=== PATIENT | male | born 1960 | race Caucasian/White ===

== ENCOUNTER 2017-11-02 13:22 | Inpatient (IN) | payer MEDICARE, MEDICAID ==
[~2017-11-02 13:22] MED LIST: Lidocaine 2% Gel 5 mL TP ONE; Propofol 10 mg/mL 20mL Vial **SURGERY USE ONLY IV ONE
[2017-11-02] MEDS ORDERED: Codeine /Guaifenesin 200mg-20mg/10 mL UDC PO STA (13:58)
[2017-11-02] MEDS ORDERED: Acetaminophen 500 MG TAB PO ONE (13:59)
[2017-11-02] MEDS ORDERED: Sodium Chloride 0.9% 1,000 ML IV ONE (14:11)
[2017-11-02] MEDS ORDERED: Codeine /Guaifenesin 200mg-20mg/10 mL UDC ONE (14:29)
[2017-11-02] MEDS ORDERED: Acetaminophen 500 MG TAB ONE (14:30)
[2017-11-02 14:38] LABS: % BASOPHILS 0.3 % (0.0-2.0); % EOSINOPHILS 0.1 % (0.0-5.0); % LYMPHOCYTES 9.2 % (20.0-50.0); % MONOCYTES 3.6 % (2.0-10.0); % NEUTROPHILS 86.8 % (40.0-80.0); LYMPHOCYTE ABSOLUTE 0.8 Th/cmm (1.5-3.0); MEAN CELL VOLUME 77.5 fl (80-99); MEAN CORPUSCULAR HEMOGLOBIN 24.8 pg (26.0-30.0); MEAN CORPUSCULAR HGB CONC 31.9 pg (28.0-36.0); MONOCYTE ABSOLUTE 0.3 Th/cmm (0.3-1.0); NEUTROPHILE ABSOLUTE 7.9 Th/cmm (1.8-8.0); PLATELET COUNT 534 Th/cmm (150-400); RED BLOOD COUNT 2.17 Mil/cmm (4.30-5.70); RED CELL DISTRIBUTION WIDTH 18.5 % (11.5-20.0)
[2017-11-02 14:44] LABS: ALBUMIN 2.9 gm/dL (4.2-5.5); ALKALINE PHOSPHATASE 46 U/L (34-104); BILIRUBIN,TOTAL 0.1 mg/dL (0.3-1.0); BUN - UREA NITROGEN 36 mg/dL (7-25); CALCIUM SERUM 8.3 mg/dL (8.6-10.3); CARBON DIOXIDE 26.7 mEq/L (21.0-31.0); CHLORIDE 103 mEq/L (98-107); CREATININE - SERUM 0.6 mg/dL (0.7-1.3); GFR AFRICAN-AMERICAN > 60.0 ml/min (>90); GFR NON AFRICAN-AMERICAN > 60.0 ml/min; GLUCOSE 170 mg/dL (70-105); POTASSIUM SERUM 3.7 mEq/L (3.5-5.1); SGOT 9 U/L (13-39); SGPT/ALT 10 U/L (7-52); SODIUM SERUM 136 mEq/L (136-145); TOTAL PROTEIN,SERUM 5.8 gm/dL (6.0-8.3)
[2017-11-02 14:45] LABS: HEMATOCRIT 16.8 % (41.0-60); HEMOGLOBIN 5.4 gm/dL (12-16)
--- NOTE | 2017-11-02 14:55 | Diagnostic Imaging Report ---
CHEST X-RAY: AP view INDICATION: Pneumonia COMPARISON: None FINDINGS: Left basal subsegmental atelectasis versus scarring is noted. There is no focal consolidation or pleural effusions The heart is normal in size. The osseous structures demonstrate no acute abnormalities. IMPRESSION: Left basal subsegmental atelectasis versus scarring. No focal consolidation identified.
[2017-11-02] MEDS ORDERED: Piperacillin Sodium/Tazobact 3.375 gm Vial IV ONE (15:09)
[2017-11-02 15:12] LABS: INF A SCREEN NEG FOR INF A; INF B SCREEN NEG FOR INF B
--- NOTE | 2017-11-02 15:22 | ER Physician Documentation ---
DATE OF SERVICE: 11/02/2017 CHIEF COMPLAINT: The patient has some vomiting, nausea sensation, and not feeling good and looks pale and feeling body ache and not feeling well. HISTORY OF PRESENT ILLNESS: The patient is not a very good historian. He lives in a long term and he is a patient of Dr. Preston, [facility]. The patient's temperature is 98.9, pulse is 101, respirations 19, blood pressure 128/65, saturation 93%. The patient's dentist is Dr. Matthews, patient's executive admin is Nick Snow and pharmacy is [facility]. ALLERGIES: No known allergies. The patient is not a very good historian. He has a G-tube in place. So history of present illness could not be obtained. Most of the history of present illness, etc., would be given from the available records that are there. PHYSICAL EXAMINATION: GENERAL: The patient appears to be of stated age, maybe 5 years older than the stated age. Conjunctivae appear to be showing pallor. Pupils are equal, reacting to light. No meningeal signs are noted. No edema over the legs. The patient has a G-tube. He appears to be 5-7 years at least more than the stated age, not in any acute distress at the present moment. The patient is in sinus rhythm. Blood pressure 130/65. Saturation is not connected. We will ask them to connect it. The patient, on physical examination shows that he is awake. He is somewhat confused. He said he fell down. He does not know where fell down. He says he is not feeling good. HEENT: His conjunctivae are pink, sclerae are white. As I mentioned, sclerae shows evidence of anemia. No evidence of any meningeal signs. Reflexes are normal. Plantars are downgoing. HEENT normal. NECK: Carotids are normal. Normal uplift. No cyanosis or petechia. No ecchymosis. No evidence of any gross congestive heart failure. CHEST: Reveals trachea is central. Few occasional crackles and rales audible in both lung davidson. ABDOMEN: Soft. Liver, spleen not enlarged. No free fluid in his abdominal cavity. No ascites is present. The patient's final diagnosis is patient is feeling sick. It looks like the patient's past history showed malignant neoplasm of the esophagus, unspecified gastrostomy status with G-tube in place. Muscle wasting and atrophy. NEUROLOGIC: Other abnormalities of gait and mobility is noted. The patient has ___ ascites of the esophagus is noted. Rehabilitation potential is poor in this patient. According to the notes of Dr. Preston and from what my examination also shows that he is weak. Some other notes of the patient were also reviewed that came with the patient. The patient has a power of insurance attorney. He has indicated power of insurance attorney to the patient is Sravani Lee on 11/05/2016. MEDICATIONS: The patient's medications that he takes include Tylenol and Ventolin inhaler, Zofran, artificial tears, Dulcolax, Ativan and the patient takes isosorbide dinitrate, Pepcid, atorvastatin, doxazosin, aspirin, Norvasc, and Lotensin 20 mg p.o. b.i.d. These are the medications he is taking. We will give those medications to start with. CLINICAL IMPRESSION: The patient probably has some sepsis going on. He is having cough. He is having shortness of breath, perhaps he has GERD. He has aspirated. He has cancer of the esophagus with surgery done. He has mental disorder. He has schizophrenia. He has depression. He has anxiety and he has a G-tube in place. The patient had been seen by psychiatrist, Dr. Wright. LABORATORY DATA: The patient's lab workup was done on 09/17, at another institution showing white count to be 8.56, hemoglobin 9.1, hematocrit 29.6, platelet count was 421, neutrophils is 87.1 showing shift to the left. Absolute neutrophil is high, 7.56. Glucose is 112, BUN is 7, creatinine 0.53. Sodium 142, potassium 4.3, chloride 106, CO2 is 26, calcium is 8.2, albumin is 3, SGOT 17, SGPT is 19, bilirubin is 0.4, alkaline phosphatase 59, protein is 5.8, BUN and creatinine is ___ and 0.3, albumin level is 14, cholesterol level is 85. TSH is 2.5. Cholesterol total is 150, triglyceride is 114, HDL is 42. Free T4 is 1.1. Hemoglobin A1c is 4.9. PLAN: To get all the lab workup done. EKG done. Chest x-ray done. Blood gas done on the patient and give all the blood pressure medications, coronary artery disease medications, etc. that the patient is needing. This is the preliminary report. Addendum report once we get all the labs, etc. will be dictated. JOB# [id number]
--- NOTE | 2017-11-02 21:17 | History and Physical ---
History of Present Illness - HPI Chief Complaint: coffee ground emesis HPI: This is a 57 year old male who has a 1 day history of coffee ground emesis. Patient is a resident of [facility]. Vital Signs: Last Vital Signs Temp 97.8 F 11/02/17 19:59 Pulse 88 11/02/17 19:59 Resp 18 11/02/17 19:59 BP 115/51 11/02/17 19:59 Pulse Ox 100 11/02/17 19:59 Past Medical History Other History: schizophrenia gerd depression esophageal ca htn hypercholesterolemia Family Medical History - Family Member Mother History Unknown: Yes Social History Smoke: No Alcohol: None Drugs: None Lives: [facility] - Medications Home Medications: Home Medication Medication Instructions Recorded Type Acetaminophen [Tylenol] 650 mg PO Q4HR PRN 11/02/17 History Albuterol Sulfate [Ventolin Hfa] 2 puff IH Q4H PRN 11/02/17 History Amino Acids/Protein Hydrolys 30 ml GT DAILY 11/02/17 History [Pro-Stat Sugar Free 887 ml] Aspirin [Aspirin Chewable] 81 mg GT DAILY 11/02/17 History Atorvastatin Calcium [Lipitor] 20 mg GT HS 11/02/17 History Benazepril [Lotensin] 20 mg GT BID 11/02/17 History Bisacodyl [Dulcolax 10 Mg Supp] 10 mg RC DAILY PRN 11/02/17 History Dextran 70/Hypromellose 1 each OP BID PRN 11/02/17 History [Artificial Tears] Docusate Sodium [Colace] 100 mg GT BID 11/02/17 History Doxazosin Mesylate 1 mg GT HS 11/02/17 History Dutasteride [Avodart] 0.5 mg GT DAILY 11/02/17 History Famotidine [Pepcid] 20 mg GT DAILY 11/02/17 History Isosorbide Dinitrate 30 mg GT DAILY 11/02/17 History Lorazepam [Ativan] 1 mg GT Q6H PRN 11/02/17 History Magnesium Hydroxide [Milk of 30 ml GT DAILY PRN 11/02/17 History Magnesia] Ondansetron HCl [Zofran*] 4 mg GT Q8H PRN 11/02/17 History amLODIPine Besylate [Norvasc*] 10 mg GT DAILY 11/02/17 History metFORMIN [Glucophage] 500 mg GT BID 11/02/17 History - Allergies Allergies/Adverse Reactions: Allergies Allergy/AdvReac Type Severity Reaction Status Date / Time No Known Allergies Allergy Verified 11/02/17 13:41 Review of Systems - Review of Systems Constitutional: Report: Weakness Eyes: Report: No Significant ENT: Report: No Significant Respiratory: Report: No Significant Cardiovascular: Report: No Significant Gastrointestinal: Report: Nausea Genitourinary: Report: No Significant Musculoskeletal: Report: No Significant Skin: Report: No Significant Neurological: Report: Weakness Physical Exam - Physical Exam HEENT: Report: Ears Nose Throat within normal limits Neck: Report: Within normal limits Cardiovascular Systems: Report: +s1/s2 noted Respiratory: Report: Breath Sounds are within normal limits Abdomen: Report: Non-tender to palpation Extremities: Report: Non-tender to palpation. Skin: Report: Warm, Dry - Assessment Assessment: Current Active Problems Problem Status Onset COFFEE GROUND EMESIS Acute severe anemia schizophrenia gerd htn hypercholesteremia - Plan Plan: gi consult iv for hydration transfuse prbc continue current orders
[2017-11-02] MEDS: Atorvastatin Calcium 10 MG TAB GT SCH (23:25)
[2017-11-03] MEDS: Morphine Sulfate 2 mg/mL 1mL Syr IV PRN (03:37)
[2017-11-03] MEDS: Sodium Chloride 0.9% 1,000 ML IV SCH (03:44)
[2017-11-03] MEDS ORDERED: Polyvinyl Alcohol Ophth Soln 15 mL Bottle EACH EYE PRN (07:39)
[2017-11-03 08:13] LABS: IRON LC 16 ug/dL (38-169); TIBC (LC) 176 ug/dL (250-450); UIBC 160 ug/dL (111-343)
[2017-11-03] MEDS ORDERED: Non-Formulary Item 1 EA (Amino Acids/Protein Hydrolys [Pro-Stat Sugar Free Liquid] 30 ML) GT SCH (09:00)
[2017-11-03] MEDS ORDERED: Aspirin 81mg Chewable Tab GT SCH (09:00)
[2017-11-03] MEDS ORDERED: Pantoprazole 80 MG in Sodium Chloride 0.9% 100 ML IV ONE (11:00)
--- NOTE | 2017-11-03 12:32 | Internal Medicine Prog Note ---
Internal Medicine Subjective - Subjective Service Date: 11/03/17 Patient seen and examined:: with staff Patient is:: awake Per staff patient has:: tolerating meds Internal Medicine Objective - Results Result Diagrams: 11/02/17 14:15 11/02/17 14:15 Recent Labs: Laboratory Last Values WBC 9.0 Th/cmm (4.8-10.8) 11/02/17 14:15 RBC 2.17 Mil/cmm (4.30-5.70) L 11/02/17 14:15 Hgb 5.4 gm/dL (12-16) L* 11/02/17 14:15 Hct 16.8 % (41.0-60) L* 11/02/17 14:15 MCV 77.5 fl (80-99) L 11/02/17 14:15 MCH 24.8 pg (26.0-30.0) L 11/02/17 14:15 MCHC Differential 31.9 pg (28.0-36.0) 11/02/17 14:15 RDW 18.5 % (11.5-20.0) 11/02/17 14:15 Plt Count 534 Th/cmm (150-400) H 11/02/17 14:15 MPV 7.0 fl 11/02/17 14:15 Neutrophils % 86.8 % (40.0-80.0) H 11/02/17 14:15 Lymphocytes % 9.2 % (20.0-50.0) L 11/02/17 14:15 Monocytes % 3.6 % (2.0-10.0) 11/02/17 14:15 Eosinophils % 0.1 % (0.0-5.0) 11/02/17 14:15 Basophils % 0.3 % (0.0-2.0) 11/02/17 14:15 Sodium 136 mEq/L (136-145) 11/02/17 14:15 Potassium 3.7 mEq/L (3.5-5.1) 11/02/17 14:15 Chloride 103 mEq/L (98-107) 11/02/17 14:15 Carbon Dioxide 26.7 mEq/L (21.0-31.0) 11/02/17 14:15 Anion Gap 10.0 (7.0-16.0) 11/02/17 14:15 BUN 36 mg/dL (7-25) H 11/02/17 14:15 Creatinine 0.6 mg/dL (0.7-1.3) L 11/02/17 14:15 Est GFR ( Amer) > 60.0 ml/min (>90) 11/02/17 14:15 Est GFR (Non-Af Amer) > 60.0 ml/min 11/02/17 14:15 BUN/Creatinine Ratio 60.0 11/02/17 14:15 Glucose 170 mg/dL (70-105) H 11/02/17 14:15 Whole Bld Lactic Acid 1.93 mmol/L (0.60-1.99) 11/02/17 14:15 Calcium 8.3 mg/dL (8.6-10.3) L 11/02/17 14:15 Magnesium 2.0 mg/dL (1.9-2.7) 11/02/17 14:15 Iron 16 ug/dL (38-169) L 11/02/17 16:30 TIBC 176 ug/dL (250-450) L 11/02/17 16:30 Iron Saturation 9 % (15-55) L 11/02/17 16:30 Unsaturated IBC 160 ug/dL (111-343) 11/02/17 16:30 Total Bilirubin 0.1 mg/dL (0.3-1.0) L 11/02/17 14:15 AST 9 U/L (13-39) L 11/02/17 14:15 ALT 10 U/L (7-52) 11/02/17 14:15 Alkaline Phosphatase 46 U/L (34-104) 11/02/17 14:15 B-Natriuretic Peptide 23.9 pg/mL (5.0-100.0) 11/02/17 14:15 Total Protein 5.8 gm/dL (6.0-8.3) L 11/02/17 14:15 Albumin 2.9 gm/dL (4.2-5.5) L 11/02/17 14:15 Globulin 2.9 gm/dL 11/02/17 14:15 Albumin/Globulin Ratio 1.0 (1.0-1.8) 11/02/17 14:15 TSH 1.36 uIU/ml (0.34-5.60) 11/02/17 14:15 Influenza A (Rapid) NEG FOR INF A 11/02/17 14:15 Influenza B (Rapid) NEG FOR INF B 11/02/17 14:15 Blood Type B POSITIVE 11/02/17 14:15 Antibody Screen NEGATIVE 11/02/17 14:15 Crossmatch See Detail 11/02/17 14:15 - Physical Exam Vitals and I&O: Vital Signs Temp 97.7 F 11/03/17 12:00 Pulse 65 11/03/17 12:00 Resp 17 11/03/17 12:00 BP 120/71 11/03/17 12:00 Pulse Ox 97 11/03/17 12:00 Intake & Output 11/02/17 11/03/17 11/03/17 18:59 06:59 18:59 Intake Total 500 Output Total 600 Balance -100 Weight (lbs) 160 lb Intake: Blood Product 500 Output: Urine 600 Other: # Voids 1 # Bowel Movements 1 Active Medications: Current Medications Acetaminophen (Tylenol) 650 mg PO Q4HR PRN PRN Reason: MILD PAIN Stop: 01/01/18 20:56 Amlodipine Besylate (Norvasc) 10 mg GT DAILY [facility] Stop: 01/02/18 08:59 Last Admin: 11/03/17 09:00 Dose: Not Given Artificial Tears (Artificial Tears Oph Soln) 1 drop EACH EYE BID PRN PRN Reason: DRY EYES Stop: 01/02/18 07:38 Atorvastatin Calcium (Lipitor) 20 mg GT HS [facility] Stop: 01/01/18 20:59 Last Admin: 11/02/17 23:25 Dose: Not Given Benazepril HCl (Lotensin) 20 mg GT BID [facility] Stop: 01/02/18 08:59 Last Admin: 11/03/17 10:31 Dose: Not Given Bisacodyl (Dulcolax 10 Mg Supp) 10 mg RC DAILY PRN PRN Reason: Constipation Stop: 01/01/18 20:56 Docusate Sodium (Colace) 100 mg PO BID [facility] Stop: 01/02/18 08:59 Last Admin: 11/03/17 09:00 Dose: Not Given Sodium Chloride (Nacl 0.9%) 1,000 mls @ 100 mls/hr IV .Q10H [facility] Stop: 01/01/18 22:09 Last Admin: 11/03/17 03:44 Dose: 100 mls/hr Pantoprazole Sodium 80 mg/ (Sodium Chloride) 100 mls @ 10 mls/hr IV X1 ONE Stop: 11/03/17 20:59 Miscellaneous (Albuterol Sulfate [Ventolin Hfa]) 2 puff IH Q4H PRN PRN Reason: SOB/WHEEZING Morphine Sulfate (Morphine) 1 mg IV Q3HR PRN PRN Reason: moderate pain Stop: 01/01/18 23:37 Last Admin: 11/03/17 03:37 Dose: 1 mg Ondansetron HCl (Zofran) 4 mg IV Q6H PRN PRN Reason: Nausea / Vomiting Stop: 01/01/18 23:37 Last Admin: 11/03/17 03:37 Dose: 4 mg General: weak, alert HEENT: NC/AT, PERRLA Neck: Supple Lungs: CTAB Cardiovascular: RRR, Normal S1, Normal S2, without murmur Abdomen: soft, non-tender, non-distended, positive bowel sound Neurological: alert Internal Medicine Assmt/Plan - Assessment Assessment: severe anemia schizophrenia gerd htn hypercholesteremia - Plan Plan: monitor h/h ivf for hydration follow up labs in am continue current orders
[2017-11-03 12:53] VITALS: BP 115/59
[2017-11-03] MEDS ORDERED: Non-Formulary Item 1 EA (Ondansetron Hcl [Zofran*] 4 MG) GT PRN (12:57)
[2017-11-03] MEDS ORDERED: Magnesium Hydroxide (MOM) 30 mL UDC GT PRN (12:57)
[2017-11-03 13:03] LABS: LYMPHOCYTE ABSOLUTE 0.5 Th/cmm (1.5-3.0); MEAN CELL VOLUME 83.2 fl (80-99); MONOCYTE ABSOLUTE 0.3 Th/cmm (0.3-1.0); RED CELL DISTRIBUTION WIDTH 16.2 % (11.5-20.0)
[2017-11-03 13:09] LABS: HEMOGLOBIN 8.3 gm/dL (12-16); MEAN CORPUSCULAR HEMOGLOBIN 26.9 pg (26.0-30.0); MEAN CORPUSCULAR HGB CONC 32.3 pg (28.0-36.0); RED BLOOD COUNT 3.07 Mil/cmm (4.30-5.70); WHITE BLOOD COUNT 8.6 Th/cmm (4.8-10.8)
[2017-11-03 13:10] LABS: % BASOPHILS 0.6 % (0.0-2.0); % EOSINOPHILS 0.4 % (0.0-5.0); % LYMPHOCYTES 6.3 % (20.0-50.0); % NEUTROPHILS 88.7 % (40.0-80.0); BASOPHILE ABSOLUTE 0.1 Th/cumm (0-0.2); MEAN PLATELET VOLUME 6.5 fl; NEUTROPHILE ABSOLUTE 7.7 Th/cmm (1.8-8.0)
[2017-11-03 13:11] LABS: HEMATOCRIT 25.5 % (41.0-60); PLATELET COUNT 381 Th/cmm (150-400)
[2017-11-03 13:50] LABS: ABSOLUTE RETICULOCYTE 39.9 Th/cmm; CORRECTED RETICULOCYTE COUNT 0.7 % (0.5-1.5); HEMATOCRIT 25.5 % (33.0-45.0); RBC RETICULOCYTE COUNT 3.07 Mil/cmm; RETICULOCYTES % COUNTED 1.3 % (0.5-1.5)
--- NOTE | 2017-11-03 17:15 | Consultation ---
DATE OF CONSULTATION: 11/03/2017 REASON FOR CONSULTATION: GI bleed. HISTORY OF PRESENT ILLNESS: This consult was obtained through the courtesy of Dr. Preston for this 57-year-old with diabetes, hypertension, and hyperlipidemia; admitted to the hospital for hematemesis. Apparently, the patient has been vomiting blood for a couple of days. He came to the hospital, hemoglobin was 5.6. The patient is very slow to answer questions, but he is fully oriented. He denies any abdominal pain. He has lost 3 pounds over the last few days. There is no diarrhea, constipation, or black stools. PAST MEDICAL HISTORY: Diabetes, hypertension, hyperlipidemia, depression, schizophrenia, and the record has said esophageal C, but he did not mention it. PAST SURGICAL HISTORY: Negative. SOCIAL HISTORY: Smokes 2 packs a day. Denies alcohol or drugs. FAMILY HISTORY: Noncontributory. ALLERGIES: No known drug allergies. MEDICATIONS: The patient is started on Tylenol, amlodipine, aspirin, atorvastatin, Lotensin, Dulcolax, Colace, morphine, Zofran, and Protonix. REVIEW OF SYSTEMS: As stated above, 3 pounds weight loss. No nausea, vomiting, diarrhea, or constipation. No melena. PHYSICAL EXAMINATION: GENERAL: The patient is awake, oriented to self, place, in mild distress. VITAL SIGNS: Blood pressure is 107/61, heart rate 77, respiratory rate 18, and temperature is 97.2. HEAD AND NECK: Pupils reactive to light and accommodation. Extraocular muscles could not be tested. Sclerae are anicteric, conjunctivae pale. Oral cavity, no lesion. NECK: Supple. No jugular venous distention. No carotid bruits or lymph node. CHEST: Good respiratory movements. LUNGS: Clear to auscultation. CARDIOVASCULAR: Regular rate and rhythm. No murmur or gallop. ABDOMEN: Soft, positive bowel sounds. Abdomen was not tender. EXTREMITIES: Lower extremities, no edema. CENTRAL NERVOUS SYSTEM: Grossly nonfocal. LABORATORY DATA: Hemoglobin 5.4, MCV low at 77.5, RDW elevated at 18.5. Iron was 16, TIBC was 176, and saturation was 9. IMPRESSION: A 57-year-old with gastrointestinal bleed. ASSESSMENT AND PLAN: Gastrointestinal bleed, rule out peptic ulcer disease versus upper gastrointestinal malignancy versus erosive esophagitis, especially with a possible history of esophageal cancer. RECOMMENDATIONS: PPI, but we will use a drip instead of once a day. We will hold also aspirin. We will allow clear liquid diet today then EGD after transfusion, most probably in the morning, although there is active bleeding, then sooner, and then further recommendations to follow. Other medical problems such as diabetes, hypertension, hyperlipidemia, etc., as per Dr. Preston. Thank you Dr. Preston for allowing me to participate in the care of the patient. If you have any further questions, please let me know. JOB# [id number]
[2017-11-03] MEDS: Atorvastatin Calcium 10 MG TAB GT SCH (20:26)
[2017-11-03] MEDS ORDERED: Pantoprazole 80 MG in Sodium Chloride 0.9% 100 ML IV SCH (22:30)
[2017-11-04] MEDS: Morphine Sulfate 2 mg/mL 1mL Syr IV PRN (02:52)
[2017-11-04 06:20] LABS: % EOSINOPHILS 1.2 % (0.0-5.0); % LYMPHOCYTES 10.6 % (20.0-50.0); % MONOCYTES 5.3 % (2.0-10.0); % NEUTROPHILS 82.9 % (40.0-80.0); EOSINOPHILE ABSOLUTE 0.1 Th/cmm (0.1-0.4); LYMPHOCYTE ABSOLUTE 0.6 Th/cmm (1.5-3.0); MEAN CELL VOLUME 83.3 fl (80-99); MEAN CORPUSCULAR HEMOGLOBIN 26.8 pg (26.0-30.0); MEAN CORPUSCULAR HGB CONC 32.2 pg (28.0-36.0); MEAN PLATELET VOLUME 6.7 fl; MONOCYTE ABSOLUTE 0.3 Th/cmm (0.3-1.0); NEUTROPHILE ABSOLUTE 4.8 Th/cmm (1.8-8.0); RED BLOOD COUNT 2.86 Mil/cmm (4.30-5.70); RED CELL DISTRIBUTION WIDTH 16.6 % (11.5-20.0)
[2017-11-04 06:22] LABS: HEMOGLOBIN 7.7 gm/dL (12-16)
[2017-11-04 06:23] LABS: HEMATOCRIT 23.8 % (41.0-60); PLATELET COUNT 295 Th/cmm (150-400); WHITE BLOOD COUNT 5.8 Th/cmm (4.8-10.8)
[2017-11-04 06:33] LABS: INR 1.03 (0.5-1.4); PROTHROMBIN TIME (TEST) 10.7 SECONDS (9.5-11.5)
[2017-11-04 06:34] LABS: ANION GAP 8.9 (7.0-16.0); BUN - UREA NITROGEN 10 mg/dL (7-25); CALCIUM SERUM 7.5 mg/dL (8.6-10.3); CARBON DIOXIDE 21.9 mEq/L (21.0-31.0); CHLORIDE 109 mEq/L (98-107); CREATININE - SERUM 0.4 mg/dL (0.7-1.3); GFR AFRICAN-AMERICAN > 60.0 ml/min (>90); GFR NON AFRICAN-AMERICAN > 60.0 ml/min; GLUCOSE 135 mg/dL (70-105); POTASSIUM SERUM 3.8 mEq/L (3.5-5.1); SODIUM SERUM 136 mEq/L (136-145)
[2017-11-04] MEDS: Sodium Chloride 0.9% 1,000 ML IV SCH (06:51)
--- NOTE | 2017-11-04 09:45 | General Progress Note ---
Subjective - Review of Systems Service Date: 11/04/17 Events since last encounter: awake alert, still vomiting Objective - Results Result Diagrams: 11/04/17 05:54 11/04/17 05:54 Recent Labs: Laboratory Last Values WBC 5.8 Th/cmm (4.8-10.8) D 11/04/17 05:54 RBC 2.86 Mil/cmm (4.30-5.70) L 11/04/17 05:54 Hgb 7.7 gm/dL (12-16) L* 11/04/17 05:54 Hct 23.8 % (41.0-60) L 11/04/17 05:54 MCV 83.3 fl (80-99) 11/04/17 05:54 MCH 26.8 pg (26.0-30.0) 11/04/17 05:54 MCHC Differential 32.2 pg (28.0-36.0) 11/04/17 05:54 RDW 16.6 % (11.5-20.0) 11/04/17 05:54 Plt Count 295 Th/cmm (150-400) D 11/04/17 05:54 MPV 6.7 fl 11/04/17 05:54 Neutrophils % 82.9 % (40.0-80.0) H 11/04/17 05:54 Lymphocytes % 10.6 % (20.0-50.0) L 11/04/17 05:54 Monocytes % 5.3 % (2.0-10.0) 11/04/17 05:54 Eosinophils % 1.2 % (0.0-5.0) 11/04/17 05:54 Basophils % 0.0 % (0.0-2.0) 11/04/17 05:54 Total Retics Counted 1.3 % (0.5-1.5) 11/03/17 12:55 Absolute Retic 39.9 Th/cmm 11/03/17 12:55 Corrected Retic Count 0.7 % (0.5-1.5) 11/03/17 12:55 PT 10.7 SECONDS (9.5-11.5) 11/04/17 05:54 INR 1.03 (0.5-1.4) 11/04/17 05:54 Sodium 136 mEq/L (136-145) 11/04/17 05:54 Potassium 3.8 mEq/L (3.5-5.1) 11/04/17 05:54 Chloride 109 mEq/L (98-107) H 11/04/17 05:54 Carbon Dioxide 21.9 mEq/L (21.0-31.0) 11/04/17 05:54 Anion Gap 8.9 (7.0-16.0) 11/04/17 05:54 BUN 10 mg/dL (7-25) 11/04/17 05:54 Creatinine 0.4 mg/dL (0.7-1.3) L 11/04/17 05:54 Est GFR ( Amer) > 60.0 ml/min (>90) 11/04/17 05:54 Est GFR (Non-Af Amer) > 60.0 ml/min 11/04/17 05:54 BUN/Creatinine Ratio 25.0 11/04/17 05:54 Glucose 135 mg/dL (70-105) H 11/04/17 05:54 Whole Bld Lactic Acid 1.93 mmol/L (0.60-1.99) 11/02/17 14:15 Calcium 7.5 mg/dL (8.6-10.3) L 11/04/17 05:54 Magnesium 2.0 mg/dL (1.9-2.7) 11/02/17 14:15 Iron 16 ug/dL (38-169) L 11/02/17 16:30 TIBC 176 ug/dL (250-450) L 11/02/17 16:30 Iron Saturation 9 % (15-55) L 11/02/17 16:30 Unsaturated IBC 160 ug/dL (111-343) 11/02/17 16:30 Ferritin 12 ng/mL (30-400) L 11/02/17 16:30 Total Bilirubin 0.1 mg/dL (0.3-1.0) L 11/02/17 14:15 AST 9 U/L (13-39) L 11/02/17 14:15 ALT 10 U/L (7-52) 11/02/17 14:15 Alkaline Phosphatase 46 U/L (34-104) 11/02/17 14:15 B-Natriuretic Peptide 23.9 pg/mL (5.0-100.0) 11/02/17 14:15 Total Protein 5.8 gm/dL (6.0-8.3) L 11/02/17 14:15 Albumin 2.9 gm/dL (4.2-5.5) L 11/02/17 14:15 Globulin 2.9 gm/dL 11/02/17 14:15 Albumin/Globulin Ratio 1.0 (1.0-1.8) 11/02/17 14:15 TSH 1.36 uIU/ml (0.34-5.60) 11/02/17 14:15 Influenza A (Rapid) NEG FOR INF A 11/02/17 14:15 Influenza B (Rapid) NEG FOR INF B 11/02/17 14:15 Blood Type B POSITIVE 11/02/17 14:15 Antibody Screen NEGATIVE 11/02/17 14:15 Crossmatch See Detail 11/02/17 14:15 - Physical Exam Vitals and I&O: Vital Signs Temp 97.4 F 11/04/17 08:06 Pulse 91 11/04/17 08:06 Resp 20 11/04/17 08:06 BP 114/61 11/04/17 08:06 Pulse Ox 100 11/04/17 08:06 Intake & Output 11/03/17 11/04/17 11/04/17 18:59 06:59 18:59 Intake Total 1650 Output Total 700 Balance 950 Weight (lbs) 72.575 kg 72.575 kg Intake: Intake, IV Amount 1000 Sodium Chloride 0.9% 1, 1000 000 ml @ 100 mls/hr IV . Q10H [facility] Rx#:[id number] Oral 400 Blood Product 250 Output: Urine 700 Other: # Voids 2 # Bowel Movements 0 Active Medications: Current Medications Acetaminophen (Tylenol) 650 mg PO Q4HR PRN PRN Reason: MILD PAIN Stop: 01/01/18 20:56 Albuterol Sulfate (Albuterol 2.5mg/3ml Neb Ud) 2.5 mg HHN Q4H PRN PRN Reason: SOB/WHEEZING Amlodipine Besylate (Norvasc) 10 mg GT DAILY [facility] Stop: 01/02/18 08:59 Last Admin: 11/03/17 09:00 Dose: Not Given Artificial Tears (Artificial Tears Ophth Soln) 1 drop EACH EYE BID PRN PRN Reason: DRY EYES Stop: 01/02/18 07:38 Atorvastatin Calcium (Lipitor) 20 mg GT HS [facility] Stop: 01/01/18 20:59 Last Admin: 11/03/17 20:26 Dose: 20 mg Benazepril HCl (Lotensin) 20 mg GT BID [facility] Stop: 01/02/18 08:59 Last Admin: 11/03/17 16:16 Dose: 20 mg Bisacodyl (Dulcolax 10 Mg Supp) 10 mg RC DAILY PRN PRN Reason: Constipation Stop: 01/01/18 20:56 Docusate Sodium (Colace) 100 mg PO BID [facility] Stop: 01/02/18 08:59 Last Admin: 11/03/17 16:16 Dose: 100 mg Doxazosin Mesylate (Cardura) 1 mg GT HS [facility] Stop: 01/02/18 20:59 Last Admin: 11/03/17 20:26 Dose: 1 mg Dutasteride (Avodart) 0.5 mg PO DAILY [facility] PRN Reason: Protocol Stop: 01/03/18 08:59 Famotidine (Pepcid) 20 mg GT DAILY [facility] Stop: 01/03/18 08:59 Sodium Chloride (Nacl 0.9%) 1,000 mls @ 100 mls/hr IV .Q10H [facility] Stop: 01/01/18 22:09 Last Admin: 11/04/17 06:51 Dose: 100 mls/hr Pantoprazole Sodium 80 mg/ (Sodium Chloride) 100 mls @ 10 mls/hr IV Q24HR [facility] Stop: 01/03/18 22:29 Isosorbide Dinitrate (Isordil) 30 mg GT DAILY [facility] Stop: 01/03/18 08:59 Lorazepam (Ativan) 1 mg GT Q6H PRN; Protocol PRN Reason: Agitation Stop: 01/02/18 12:56 Magnesium Hydroxide (Milk Of Magnesia) 30 ml GT DAILY PRN PRN Reason: Constipation Stop: 01/02/18 12:56 Metformin HCl (Glucophage) 500 mg GT BID [facility] Stop: 01/02/18 16:59 Last Admin: 11/03/17 16:15 Dose: 500 mg Morphine Sulfate (Morphine) 1 mg IV Q3HR PRN PRN Reason: moderate pain Stop: 01/01/18 23:37 Last Admin: 11/04/17 02:52 Dose: 1 mg Ondansetron HCl (Zofran) 4 mg IV Q6H PRN PRN Reason: Nausea / Vomiting Stop: 01/01/18 23:37 Last Admin: 11/03/17 03:37 Dose: 4 mg Ondansetron HCl (Zofran Odt) 4 mg SL Q8H PRN PRN Reason: Nausea / Vomiting Stop: 01/02/18 13:55 Quetiapine Fumarate (Seroquel) 250 mg PO HS [facility] PRN Reason: Protocol Stop: 01/02/18 20:59 Assessment/Plan - Problem List Patient Problems: All Active Problems COFFEE GROUND EMESIS (Acute) - Assessment Assessment: Current Active Problems Problem Status Onset COFFEE GROUND EMESIS Acute severe anemia schizophrenia gerd htn hypercholesteremia - Plan Plan: gi f/u iv for hydration continue current orders
[2017-11-04] MEDS: Atorvastatin Calcium 10 MG TAB GT SCH (20:25)
[2017-11-04] MEDS: Pantoprazole 80 MG in Sodium Chloride 0.9% 100 ML IV SCH (22:15)
[2017-11-05 06:45] LABS: MEAN CELL VOLUME 83.5 fl (80-99); MEAN CORPUSCULAR HEMOGLOBIN 27.1 pg (26.0-30.0); MEAN CORPUSCULAR HGB CONC 32.5 pg (28.0-36.0); MEAN PLATELET VOLUME 6.9 fl; PLATELET COUNT 284 Th/cmm (150-400); RED BLOOD COUNT 2.76 Mil/cmm (4.30-5.70); RED CELL DISTRIBUTION WIDTH 16.6 % (11.5-20.0); WHITE BLOOD COUNT 5.9 Th/cmm (4.8-10.8)
[2017-11-05 07:10] LABS: HEMOGLOBIN 7.5 gm/dL (12-16); MANUAL DIFF REQUIRED? YES
[2017-11-05 07:33] LABS: ANISOCYTOSIS 1+; BAND NEUTROPHILE 1 % (0-10); HYPOCHROMIA 1+; LYMPHOCYTE 4 % (20-50); MONOCYTE 7 % (2-10); NEUTROPHILS 88 % (40-80); PLATELET ESTIMATE ADEQUATE (NORMAL); TOTAL CELLS COUNTED 100
--- NOTE | 2017-11-05 08:44 | General Progress Note ---
Subjective - Review of Systems Service Date: 11/05/17 Events since last encounter: awake alert, still noted with nausea and vomiting Objective - Results Result Diagrams: 11/05/17 06:10 11/04/17 05:54 Recent Labs: Laboratory Last Values WBC 5.9 Th/cmm (4.8-10.8) 11/05/17 06:10 RBC 2.76 Mil/cmm (4.30-5.70) L 11/05/17 06:10 Hgb 7.5 gm/dL (12-16) L* 11/05/17 06:10 Hct 23.0 % (41.0-60) L 11/05/17 06:10 MCV 83.5 fl (80-99) 11/05/17 06:10 MCH 27.1 pg (26.0-30.0) 11/05/17 06:10 MCHC Differential 32.5 pg (28.0-36.0) 11/05/17 06:10 RDW 16.6 % (11.5-20.0) 11/05/17 06:10 Plt Count 284 Th/cmm (150-400) 11/05/17 06:10 MPV 6.9 fl 11/05/17 06:10 Neutrophils % 82.9 % (40.0-80.0) H 11/04/17 05:54 Band Neutrophils % 1 % (0-10) 11/05/17 06:10 Lymphocytes % 10.6 % (20.0-50.0) L 11/04/17 05:54 Monocytes % 5.3 % (2.0-10.0) 11/04/17 05:54 Eosinophils % 1.2 % (0.0-5.0) 11/04/17 05:54 Basophils % 0.0 % (0.0-2.0) 11/04/17 05:54 Neutrophils (Manual) 88 % (40-80) H 11/05/17 06:10 Lymphocytes 4 % (20-50) L 11/05/17 06:10 Monocytes 7 % (2-10) 11/05/17 06:10 Hypochromia 1+ 11/05/17 06:10 Platelet Estimate ADEQUATE (NORMAL) 11/05/17 06:10 Anisocytosis 1+ 11/05/17 06:10 Total Retics Counted 1.3 % (0.5-1.5) 11/03/17 12:55 Absolute Retic 39.9 Th/cmm 11/03/17 12:55 Corrected Retic Count 0.7 % (0.5-1.5) 11/03/17 12:55 PT 10.7 SECONDS (9.5-11.5) 11/04/17 05:54 INR 1.03 (0.5-1.4) 11/04/17 05:54 Sodium 136 mEq/L (136-145) 11/04/17 05:54 Potassium 3.8 mEq/L (3.5-5.1) 11/04/17 05:54 Chloride 109 mEq/L (98-107) H 11/04/17 05:54 Carbon Dioxide 21.9 mEq/L (21.0-31.0) 11/04/17 05:54 Anion Gap 8.9 (7.0-16.0) 11/04/17 05:54 BUN 10 mg/dL (7-25) 11/04/17 05:54 Creatinine 0.4 mg/dL (0.7-1.3) L 11/04/17 05:54 Est GFR ( Amer) > 60.0 ml/min (>90) 11/04/17 05:54 Est GFR (Non-Af Amer) > 60.0 ml/min 11/04/17 05:54 BUN/Creatinine Ratio 25.0 11/04/17 05:54 Glucose 135 mg/dL (70-105) H 11/04/17 05:54 Whole Bld Lactic Acid 1.93 mmol/L (0.60-1.99) 11/02/17 14:15 Calcium 7.5 mg/dL (8.6-10.3) L 11/04/17 05:54 Magnesium 2.0 mg/dL (1.9-2.7) 11/02/17 14:15 Iron 16 ug/dL (38-169) L 11/02/17 16:30 TIBC 176 ug/dL (250-450) L 11/02/17 16:30 Iron Saturation 9 % (15-55) L 11/02/17 16:30 Unsaturated IBC 160 ug/dL (111-343) 11/02/17 16:30 Ferritin 12 ng/mL (30-400) L 11/02/17 16:30 Total Bilirubin 0.1 mg/dL (0.3-1.0) L 11/02/17 14:15 AST 9 U/L (13-39) L 11/02/17 14:15 ALT 10 U/L (7-52) 11/02/17 14:15 Alkaline Phosphatase 46 U/L (34-104) 11/02/17 14:15 B-Natriuretic Peptide 23.9 pg/mL (5.0-100.0) 11/02/17 14:15 Total Protein 5.8 gm/dL (6.0-8.3) L 11/02/17 14:15 Albumin 2.9 gm/dL (4.2-5.5) L 11/02/17 14:15 Globulin 2.9 gm/dL 11/02/17 14:15 Albumin/Globulin Ratio 1.0 (1.0-1.8) 11/02/17 14:15 Vitamin B12 391 pg/mL (232-1245) 11/03/17 14:15 Folic Acid 11.0 ng/mL (>3.0) 11/03/17 14:15 TSH 1.36 uIU/ml (0.34-5.60) 11/02/17 14:15 Influenza A (Rapid) NEG FOR INF A 11/02/17 14:15 Influenza B (Rapid) NEG FOR INF B 11/02/17 14:15 Blood Type B POSITIVE 11/02/17 14:15 Antibody Screen NEGATIVE 11/02/17 14:15 Crossmatch See Detail 11/02/17 14:15 - Physical Exam Vitals and I&O: Vital Signs Temp 98.2 F 11/05/17 07:48 Pulse 83 11/05/17 07:48 Resp 17 11/05/17 07:48 BP 118/59 11/05/17 07:48 Pulse Ox 98 11/05/17 07:48 Intake & Output 11/04/17 11/05/17 11/05/17 18:59 06:59 18:59 Intake Total 440.041 2542 Balance 196.883 1109 Weight (lbs) 72.575 kg 72.575 kg Intake: Intake, IV Amount 323.333 Sodium Chloride 0.9% 1, 323.333 000 ml @ 100 mls/hr IV . Q10H [facility] Rx#:[id number] Tube Feeding 1340 Other: # Voids 2 2 # Bowel Movements 0 Active Medications: Current Medications Acetaminophen (Tylenol) 650 mg PO Q4HR PRN PRN Reason: MILD PAIN Stop: 01/01/18 20:56 Albuterol Sulfate (Albuterol 2.5mg/3ml Neb Ud) 2.5 mg HHN Q4H PRN PRN Reason: SOB/WHEEZING Amlodipine Besylate (Norvasc) 10 mg GT DAILY [facility] Stop: 01/02/18 08:59 Last Admin: 11/04/17 10:03 Dose: 10 mg Artificial Tears (Artificial Tears Ophth Soln) 1 drop EACH EYE BID PRN PRN Reason: DRY EYES Stop: 01/02/18 07:38 Atorvastatin Calcium (Lipitor) 20 mg GT HS [facility] Stop: 01/01/18 20:59 Last Admin: 11/04/17 20:25 Dose: 20 mg Benazepril HCl (Lotensin) 20 mg GT BID [facility] Stop: 01/02/18 08:59 Last Admin: 11/04/17 17:00 Dose: 20 mg Bisacodyl (Dulcolax 10 Mg Supp) 10 mg RC DAILY PRN PRN Reason: Constipation Stop: 01/01/18 20:56 Docusate Sodium (Colace) 100 mg PO BID [facility] Stop: 01/02/18 08:59 Last Admin: 11/04/17 17:00 Dose: 100 mg Doxazosin Mesylate (Cardura) 1 mg GT HS [facility] Stop: 01/02/18 20:59 Last Admin: 11/04/17 20:25 Dose: 1 mg Dutasteride (Avodart) 0.5 mg PO DAILY [facility] PRN Reason: Protocol Stop: 01/03/18 08:59 Last Admin: 11/04/17 10:02 Dose: 0.5 mg Famotidine (Pepcid) 20 mg GT DAILY [facility] Stop: 01/03/18 08:59 Last Admin: 11/04/17 10:03 Dose: 20 mg Sodium Chloride (Nacl 0.9%) 1,000 mls @ 100 mls/hr IV .Q10H [facility] Stop: 01/01/18 22:09 Last Infusion: 11/04/17 15:00 Dose: 100 mls/hr Pantoprazole Sodium 80 mg/ (Sodium Chloride) 100 mls @ 10 mls/hr IV Q24HR [facility] Stop: 01/03/18 22:29 Last Admin: 11/04/17 22:15 Dose: 10 mls/hr Isosorbide Dinitrate (Isordil) 30 mg GT DAILY [facility] Stop: 01/03/18 08:59 Last Admin: 11/04/17 10:03 Dose: 30 mg Lorazepam (Ativan) 1 mg GT Q6H PRN; Protocol PRN Reason: Agitation Stop: 01/02/18 12:56 Magnesium Hydroxide (Milk Of Magnesia) 30 ml GT DAILY PRN PRN Reason: Constipation Stop: 01/02/18 12:56 Metformin HCl (Glucophage) 500 mg GT BID [facility] Stop: 01/02/18 16:59 Last Admin: 11/04/17 17:02 Dose: 500 mg Morphine Sulfate (Morphine) 1 mg IV Q3HR PRN PRN Reason: moderate pain Stop: 01/01/18 23:37 Last Admin: 11/04/17 02:52 Dose: 1 mg Ondansetron HCl (Zofran) 4 mg IV Q6H PRN PRN Reason: Nausea / Vomiting Stop: 01/01/18 23:37 Last Admin: 11/03/17 03:37 Dose: 4 mg Ondansetron HCl (Zofran Odt) 4 mg SL Q8H PRN PRN Reason: Nausea / Vomiting Stop: 01/02/18 13:55 Quetiapine Fumarate 200 mg/ (Quetiapine Fumarate 50 mg) 250 mg PO HS [facility] Stop: 01/04/18 20:59 - Procedures Procedures: Procedures Procedure Code Date BLOOD TRANSFUSION SERVICE 48560 11/02/17 TRANSFUSE NONAUT RED BLOOD CELLS IN PERIPH VEIN, [facility] [id number] 11/02/17 Assessment/Plan - Problem List Patient Problems: All Active Problems COFFEE GROUND EMESIS (Acute) - Assessment Assessment: Current Active Problems Problem Status Onset COFFEE GROUND EMESIS Acute severe anemia schizophrenia gerd htn hypercholesteremia - Plan Plan: gi f/u iv for hydration continue current orders
[2017-11-05] MEDS: Sodium Chloride 0.9% 1,000 ML IV SCH (09:10)
[2017-11-05] MEDS: Morphine Sulfate 2 mg/mL 1mL Syr IV PRN (16:38)
[2017-11-05] MEDS: Atorvastatin Calcium 10 MG TAB GT SCH (21:16)
[2017-11-05] MEDS: Pantoprazole 80 MG in Sodium Chloride 0.9% 100 ML IV SCH (23:05)
[2017-11-06 06:28] LABS: ALB/GLOB RATIO 1.1 (1.0-1.8); ALBUMIN 2.3 gm/dL (4.2-5.5); ALKALINE PHOSPHATASE 37 U/L (34-104); ANION GAP 11.6 (7.0-16.0); BILIRUBIN,TOTAL 0.3 mg/dL (0.3-1.0); BUN - UREA NITROGEN 19 mg/dL (7-25); CALCIUM SERUM 7.8 mg/dL (8.6-10.3); CARBON DIOXIDE 20.2 mEq/L (21.0-31.0); CHLORIDE 109 mEq/L (98-107); CREATININE - SERUM 0.6 mg/dL (0.7-1.3); GFR AFRICAN-AMERICAN > 60.0 ml/min (>90); GFR NON AFRICAN-AMERICAN > 60.0 ml/min; GLUCOSE 262 mg/dL (70-105); POTASSIUM SERUM 3.8 mEq/L (3.5-5.1); SGOT 11 U/L (13-39); SGPT/ALT 17 U/L (7-52); SODIUM SERUM 137 mEq/L (136-145); TOTAL PROTEIN,SERUM 4.4 gm/dL (6.0-8.3)
[2017-11-06 06:38] LABS: LYMPHOCYTE ABSOLUTE 0.4 Th/cmm (1.5-3.0); MANUAL DIFF REQUIRED? YES; MEAN CELL VOLUME 83.5 fl (80-99); MEAN CORPUSCULAR HGB CONC 32.4 pg (28.0-36.0); MEAN PLATELET VOLUME 7.2 fl; MONOCYTE ABSOLUTE 0.4 Th/cmm (0.3-1.0); NEUTROPHILE ABSOLUTE 10.2 Th/cmm (1.8-8.0); PLATELET COUNT 311 Th/cmm (150-400); RED BLOOD COUNT 2.05 Mil/cmm (4.30-5.70); RED CELL DISTRIBUTION WIDTH 16.8 % (11.5-20.0)
[2017-11-06 06:45] LABS: HEMATOCRIT 17.1 % (41.0-60); HEMOGLOBIN 5.6 gm/dL (12-16)
[2017-11-06 07:22] LABS: LYMPHOCYTE 7 % (20-50); MONOCYTE 1 % (2-10); NEUTROPHILS 92 % (40-80)
[2017-11-06 07:23] LABS: ANISOCYTOSIS 1+; PLATELET ESTIMATE ADEQUATE (NORMAL)
[2017-11-06] MEDS: Sodium Chloride 0.9% 1,000 ML IV SCH (10:48)
--- NOTE | 2017-11-06 17:29 | Internal Medicine Prog Note ---
Internal Medicine Subjective - Subjective Service Date: 11/06/17 Patient seen and examined:: with staff Patient is:: awake Per staff patient has:: tolerating meds Internal Medicine Objective - Results Result Diagrams: 11/06/17 06:00 11/06/17 06:00 Recent Labs: Laboratory Last Values WBC 11.0 Th/cmm (4.8-10.8) H D 11/06/17 06:00 RBC 2.05 Mil/cmm (4.30-5.70) L 11/06/17 06:00 Hgb 5.6 gm/dL (12-16) L* 11/06/17 06:00 Hct 17.1 % (41.0-60) L* D 11/06/17 06:00 MCV 83.5 fl (80-99) 11/06/17 06:00 MCH 27.0 pg (26.0-30.0) 11/06/17 06:00 MCHC Differential 32.4 pg (28.0-36.0) 11/06/17 06:00 RDW 16.8 % (11.5-20.0) 11/06/17 06:00 Plt Count 311 Th/cmm (150-400) 11/06/17 06:00 MPV 7.2 fl 11/06/17 06:00 Neutrophils % 82.9 % (40.0-80.0) H 11/04/17 05:54 Band Neutrophils % 1 % (0-10) 11/05/17 06:10 Lymphocytes % 10.6 % (20.0-50.0) L 11/04/17 05:54 Monocytes % 5.3 % (2.0-10.0) 11/04/17 05:54 Eosinophils % 1.2 % (0.0-5.0) 11/04/17 05:54 Basophils % 0.0 % (0.0-2.0) 11/04/17 05:54 Neutrophils (Manual) 92 % (40-80) H 11/06/17 06:00 Lymphocytes 7 % (20-50) L 11/06/17 06:00 Monocytes 1 % (2-10) L 11/06/17 06:00 Nucleated RBCs 2.0 % (0-0) H 11/06/17 06:00 Hypochromia 1+ 11/05/17 06:10 Platelet Estimate ADEQUATE (NORMAL) 11/06/17 06:00 Anisocytosis 1+ 11/06/17 06:00 Total Retics Counted 1.3 % (0.5-1.5) 11/03/17 12:55 Absolute Retic 39.9 Th/cmm 11/03/17 12:55 Corrected Retic Count 0.7 % (0.5-1.5) 11/03/17 12:55 PT 10.7 SECONDS (9.5-11.5) 11/04/17 05:54 INR 1.03 (0.5-1.4) 11/04/17 05:54 Sodium 137 mEq/L (136-145) 11/06/17 06:00 Potassium 3.8 mEq/L (3.5-5.1) 11/06/17 06:00 Chloride 109 mEq/L (98-107) H 11/06/17 06:00 Carbon Dioxide 20.2 mEq/L (21.0-31.0) L 11/06/17 06:00 Anion Gap 11.6 (7.0-16.0) 11/06/17 06:00 BUN 19 mg/dL (7-25) 11/06/17 06:00 Creatinine 0.6 mg/dL (0.7-1.3) L 11/06/17 06:00 Est GFR ( Amer) > 60.0 ml/min (>90) 11/06/17 06:00 Est GFR (Non-Af Amer) > 60.0 ml/min 11/06/17 06:00 BUN/Creatinine Ratio 31.7 11/06/17 06:00 Glucose 262 mg/dL (70-105) H 11/06/17 06:00 POC Glucose 224 MG/DL (70 - 105) H 11/06/17 04:46 Whole Bld Lactic Acid 1.93 mmol/L (0.60-1.99) 11/02/17 14:15 Calcium 7.8 mg/dL (8.6-10.3) L 11/06/17 06:00 Magnesium 2.0 mg/dL (1.9-2.7) 11/02/17 14:15 Iron 16 ug/dL (38-169) L 11/02/17 16:30 TIBC 176 ug/dL (250-450) L 11/02/17 16:30 Iron Saturation 9 % (15-55) L 11/02/17 16:30 Unsaturated IBC 160 ug/dL (111-343) 11/02/17 16:30 Ferritin 12 ng/mL (30-400) L 11/02/17 16:30 Total Bilirubin 0.3 mg/dL (0.3-1.0) 11/06/17 06:00 AST 11 U/L (13-39) L 11/06/17 06:00 ALT 17 U/L (7-52) 11/06/17 06:00 Alkaline Phosphatase 37 U/L (34-104) 11/06/17 06:00 B-Natriuretic Peptide 23.9 pg/mL (5.0-100.0) 11/02/17 14:15 Total Protein 4.4 gm/dL (6.0-8.3) L 11/06/17 06:00 Albumin 2.3 gm/dL (4.2-5.5) L 11/06/17 06:00 Globulin 2.1 gm/dL 11/06/17 06:00 Albumin/Globulin Ratio 1.1 (1.0-1.8) 11/06/17 06:00 Vitamin B12 391 pg/mL (232-1245) 11/03/17 14:15 Folic Acid 11.0 ng/mL (>3.0) 11/03/17 14:15 TSH 1.36 uIU/ml (0.34-5.60) 11/02/17 14:15 Influenza A (Rapid) NEG FOR INF A 11/02/17 14:15 Influenza B (Rapid) NEG FOR INF B 11/02/17 14:15 Blood Type B POSITIVE 11/06/17 06:00 Antibody Screen NEGATIVE 11/06/17 06:00 Crossmatch See Detail 11/06/17 06:00 - Physical Exam Vitals and I&O: Vital Signs Temp 97.6 F 11/06/17 15:22 Pulse 98 11/06/17 15:22 Resp 17 11/06/17 16:28 BP 112/52 11/06/17 15:22 Pulse Ox 99 11/06/17 15:22 Intake & Output 11/05/17 11/06/17 11/06/17 18:59 06:59 18:59 Intake Total 100 1000 Balance 100 1000 Intake: Intake, IV Amount 100 1000 Pantoprazole 80 mg In 100 Sodium Chloride 0.9% 100 ml @ 10 mls/hr IV Q24HR [facility] Rx#:[id number] Sodium Chloride 0.9% 1, 1000 000 ml @ 100 mls/hr IV . Q10H [facility] Rx#:[id number] Other: Stool Characteristics Soft Formed Hard Active Medications: Current Medications Acetaminophen (Tylenol) 650 mg PO Q4HR PRN PRN Reason: MILD PAIN Stop: 01/01/18 20:56 Albuterol Sulfate (Albuterol 2.5mg/3ml Neb Ud) 2.5 mg HHN Q4H PRN PRN Reason: SOB/WHEEZING Amlodipine Besylate (Norvasc) 10 mg GT DAILY [facility] Stop: 01/02/18 08:59 Last Admin: 11/06/17 09:25 Dose: 10 mg Artificial Tears (Artificial Tears Ophth Soln) 1 drop EACH EYE BID PRN PRN Reason: DRY EYES Stop: 01/02/18 07:38 Atorvastatin Calcium (Lipitor) 20 mg GT HS [facility] Stop: 01/01/18 20:59 Last Admin: 11/05/17 21:16 Dose: 20 mg Benazepril HCl (Lotensin) 20 mg GT BID [facility] Stop: 01/02/18 08:59 Last Admin: 11/06/17 09:25 Dose: 20 mg Bisacodyl (Dulcolax 10 Mg Supp) 10 mg RC DAILY PRN PRN Reason: Constipation Stop: 01/01/18 20:56 Docusate Sodium (Colace) 100 mg PO BID [facility] Stop: 01/02/18 08:59 Last Admin: 11/06/17 09:26 Dose: 100 mg Doxazosin Mesylate (Cardura) 1 mg GT HS [facility] Stop: 01/02/18 20:59 Last Admin: 11/05/17 21:17 Dose: 1 mg Dutasteride (Avodart) 0.5 mg PO DAILY [facility] PRN Reason: Protocol Stop: 01/03/18 08:59 Last Admin: 11/06/17 09:24 Dose: 0.5 mg Famotidine (Pepcid) 20 mg GT DAILY [facility] Stop: 01/03/18 08:59 Last Admin: 11/06/17 09:24 Dose: 20 mg Sodium Chloride (Nacl 0.9%) 1,000 mls @ 100 mls/hr IV .Q10H [facility] Stop: 01/01/18 22:09 Last Admin: 11/06/17 10:48 Dose: 100 mls/hr Pantoprazole Sodium 80 mg/ (Sodium Chloride) 100 mls @ 10 mls/hr IV Q24HR [facility] Stop: 01/03/18 22:29 Last Admin: 11/05/17 23:05 Dose: 10 mls/hr Isosorbide Dinitrate (Isordil) 30 mg GT DAILY [facility] Stop: 01/03/18 08:59 Last Admin: 11/06/17 09:22 Dose: 30 mg Lorazepam (Ativan) 1 mg GT Q6H PRN; Protocol PRN Reason: Agitation Stop: 01/02/18 12:56 Last Admin: 11/06/17 05:01 Dose: 1 mg Magnesium Hydroxide (Milk Of Magnesia) 30 ml GT DAILY PRN PRN Reason: Constipation Stop: 01/02/18 12:56 Metformin HCl (Glucophage) 500 mg GT BID [facility] Stop: 01/02/18 16:59 Last Admin: 11/06/17 09:24 Dose: 500 mg Morphine Sulfate (Morphine) 1 mg IV Q3HR PRN PRN Reason: moderate pain Stop: 01/01/18 23:37 Last Admin: 11/05/17 16:38 Dose: 1 mg Ondansetron HCl (Zofran) 4 mg IV Q6H PRN PRN Reason: Nausea / Vomiting Stop: 01/01/18 23:37 Last Admin: 11/03/17 03:37 Dose: 4 mg Ondansetron HCl (Zofran Odt) 4 mg SL Q8H PRN PRN Reason: Nausea / Vomiting Stop: 01/02/18 13:55 Quetiapine Fumarate 200 mg/ (Quetiapine Fumarate 50 mg) 250 mg PO HS [facility] Stop: 01/04/18 20:59 Last Admin: 11/05/17 21:17 Dose: 250 mg General: weak, alert HEENT: NC/AT, PERRLA Neck: Supple Lungs: CTAB Cardiovascular: RRR, Normal S1, Normal S2, without murmur Abdomen: soft, non-tender, non-distended, positive bowel sound Neurological: alert - Procedures Procedures: Procedures Procedure Code Date BLOOD TRANSFUSION SERVICE 17250 11/02/17 TRANSFUSE NONAUT RED BLOOD CELLS IN PERIPH VEIN, [facility] 75099G3 11/02/17 Internal Medicine Assmt/Plan - Assessment Assessment: severe anemia schizophrenia gerd htn hypercholesteremia - Plan Plan: monitor h/h ivf for hydration follow up labs in am continue current orders
[2017-11-06] MEDS: Atorvastatin Calcium 10 MG TAB GT SCH (20:49)
[2017-11-07 06:53] LABS: % BASOPHILS 0.1 % (0.0-2.0); % LYMPHOCYTES 6.6 % (20.0-50.0); % NEUTROPHILS 86.3 % (40.0-80.0); EOSINOPHILE ABSOLUTE 0.1 Th/cmm (0.1-0.4); LYMPHOCYTE ABSOLUTE 0.4 Th/cmm (1.5-3.0); MEAN CELL VOLUME 83.5 fl (80-99); MEAN CORPUSCULAR HGB CONC 33.5 pg (28.0-36.0); MEAN PLATELET VOLUME 7.1 fl; MONOCYTE ABSOLUTE 0.4 Th/cmm (0.3-1.0); NEUTROPHILE ABSOLUTE 5.8 Th/cmm (1.8-8.0); RED BLOOD COUNT 2.09 Mil/cmm (4.30-5.70); RED CELL DISTRIBUTION WIDTH 15.5 % (11.5-20.0)
[2017-11-07 06:57] LABS: HEMATOCRIT 17.5 % (41.0-60); HEMOGLOBIN 5.9 gm/dL (12-16); WHITE BLOOD COUNT 6.7 Th/cmm (4.8-10.8)
[2017-11-07 06:58] LABS: PLATELET COUNT 229 Th/cmm (150-400)
[2017-11-07 07:25] LABS: ANION GAP 8.2 (7.0-16.0); BUN - UREA NITROGEN 19 mg/dL (7-25); CALCIUM SERUM 7.8 mg/dL (8.6-10.3); CARBON DIOXIDE 24.6 mEq/L (21.0-31.0); CHLORIDE 108 mEq/L (98-107); CREATININE - SERUM 0.4 mg/dL (0.7-1.3); GFR AFRICAN-AMERICAN > 60.0 ml/min (>90); GFR NON AFRICAN-AMERICAN > 60.0 ml/min; POTASSIUM SERUM 3.8 mEq/L (3.5-5.1); SODIUM SERUM 137 mEq/L (136-145)
[2017-11-07 07:27] LABS: GLUCOSE 149 mg/dL (70-105)
[2017-11-07 13:37] LABS: A1C % 5.7 % (4.0-6.0)
[2017-11-07] MEDS: Atorvastatin Calcium 10 MG TAB GT SCH (21:04)
--- NOTE | 2017-11-07 21:32 | Progress Notes ---
DATE: 11/07/2017 SUBJECTIVE: The patient was seen in his room. The patient has ongoing blood transfusion. According to nurses, the patient still has some bloody stool. Otherwise, the patient appears to be in no acute distress. OBJECTIVE: VITAL SIGNS: Temperature 98.4, heart rate of 100, blood pressure of 116/67, respirations of 20, and 97% on room air. HEENT: Head is atraumatic and normocephalic. Eyes: Bilateral conjunctivae are clear. Bilateral pupils are equally round and reactive. NECK: Supple. No JVD. CARDIOVASCULAR: S1 and S2 without murmur. PULMONARY: Clear to auscultation. GASTROINTESTINAL: Soft and nontender without guarding. Positive bowel sounds. MUSCULOSKELETAL: No clubbing. No cyanosis noted. ASSESSMENT: 1. Lower gastrointestinal bleed. 2. Rule out peptic ulcer disease. 3. Anemia. 4. Gastroesophageal reflux disease. 5. Hypertension. 6. Hyperlipidemia. PLAN: We will continue blood transfusion and monitor hemoglobin and hematocrit status. According to nurses, the family members have been refusing EGD and colonoscopy. We will continue to monitor the patient's blood levels. Treatment plans were discussed with the patient's nurse. Treatment plans were discussed with Dr. Preston. JOB# [id number]
[2017-11-07] MEDS: Pantoprazole 80 MG in Sodium Chloride 0.9% 100 ML IV SCH (21:57)
[2017-11-07] MEDS: Sodium Chloride 0.9% 1,000 ML IV SCH (21:58)
[2017-11-08 07:05] LABS: % BASOPHILS 1.2 % (0.0-2.0); % EOSINOPHILS 2.1 % (0.0-5.0); % LYMPHOCYTES 6.1 % (20.0-50.0); % MONOCYTES 5.3 % (2.0-10.0); % NEUTROPHILS 85.3 % (40.0-80.0); BASOPHILE ABSOLUTE 0.1 Th/cumm (0-0.2); EOSINOPHILE ABSOLUTE 0.1 Th/cmm (0.1-0.4); LYMPHOCYTE ABSOLUTE 0.3 Th/cmm (1.5-3.0); MEAN CELL VOLUME 85.8 fl (80-99); MEAN CORPUSCULAR HEMOGLOBIN 28.2 pg (26.0-30.0); MEAN CORPUSCULAR HGB CONC 32.9 pg (28.0-36.0); MEAN PLATELET VOLUME 7.4 fl; MONOCYTE ABSOLUTE 0.3 Th/cmm (0.3-1.0); NEUTROPHILE ABSOLUTE 4.8 Th/cmm (1.8-8.0); PLATELET COUNT 216 Th/cmm (150-400); RED BLOOD COUNT 2.59 Mil/cmm (4.30-5.70); RED CELL DISTRIBUTION WIDTH 14.8 % (11.5-20.0); WHITE BLOOD COUNT 5.6 Th/cmm (4.8-10.8)
[2017-11-08 07:13] LABS: HEMATOCRIT 22.2 % (41.0-60); HEMOGLOBIN 7.3 gm/dL (12-16)
[2017-11-08 07:20] LABS: ANION GAP 7.1 (7.0-16.0); BUN - UREA NITROGEN 10 mg/dL (7-25); CALCIUM SERUM 7.6 mg/dL (8.6-10.3); CARBON DIOXIDE 25.6 mEq/L (21.0-31.0); CHLORIDE 106 mEq/L (98-107); CREATININE - SERUM 0.5 mg/dL (0.7-1.3); GFR AFRICAN-AMERICAN > 60.0 ml/min (>90); GFR NON AFRICAN-AMERICAN > 60.0 ml/min; GLUCOSE 123 mg/dL (70-105); POTASSIUM SERUM 3.7 mEq/L (3.5-5.1); SODIUM SERUM 135 mEq/L (136-145)
[2017-11-08] MEDS: Sodium Chloride 0.9% 1,000 ML IV SCH ×2 (09:04→18:47)
--- NOTE | 2017-11-08 10:28 | General Progress Note ---
Subjective - Review of Systems Events since last encounter: awake alert in no distress Objective - Results Result Diagrams: 11/08/17 06:45 11/08/17 06:45 Recent Labs: Laboratory Last Values WBC 5.6 Th/cmm (4.8-10.8) 11/08/17 06:45 RBC 2.59 Mil/cmm (4.30-5.70) L 11/08/17 06:45 Hgb 7.3 gm/dL (12-16) L* 11/08/17 06:45 Hct 22.2 % (41.0-60) L D 11/08/17 06:45 MCV 85.8 fl (80-99) 11/08/17 06:45 MCH 28.2 pg (26.0-30.0) 11/08/17 06:45 MCHC Differential 32.9 pg (28.0-36.0) 11/08/17 06:45 RDW 14.8 % (11.5-20.0) 11/08/17 06:45 Plt Count 216 Th/cmm (150-400) 11/08/17 06:45 MPV 7.4 fl 11/08/17 06:45 Neutrophils % 85.3 % (40.0-80.0) H 11/08/17 06:45 Band Neutrophils % 1 % (0-10) 11/05/17 06:10 Lymphocytes % 6.1 % (20.0-50.0) L 11/08/17 06:45 Monocytes % 5.3 % (2.0-10.0) 11/08/17 06:45 Eosinophils % 2.1 % (0.0-5.0) 11/08/17 06:45 Basophils % 1.2 % (0.0-2.0) 11/08/17 06:45 Neutrophils (Manual) 92 % (40-80) H 11/06/17 06:00 Lymphocytes 7 % (20-50) L 11/06/17 06:00 Monocytes 1 % (2-10) L 11/06/17 06:00 Nucleated RBCs 2.0 % (0-0) H 11/06/17 06:00 Hypochromia 1+ 11/05/17 06:10 Platelet Estimate ADEQUATE (NORMAL) 11/06/17 06:00 Anisocytosis 1+ 11/06/17 06:00 Total Retics Counted 1.3 % (0.5-1.5) 11/03/17 12:55 Absolute Retic 39.9 Th/cmm 11/03/17 12:55 Corrected Retic Count 0.7 % (0.5-1.5) 11/03/17 12:55 PT 10.7 SECONDS (9.5-11.5) 11/04/17 05:54 INR 1.03 (0.5-1.4) 11/04/17 05:54 Sodium 135 mEq/L (136-145) L 11/08/17 06:45 Potassium 3.7 mEq/L (3.5-5.1) 11/08/17 06:45 Chloride 106 mEq/L (98-107) 11/08/17 06:45 Carbon Dioxide 25.6 mEq/L (21.0-31.0) 11/08/17 06:45 Anion Gap 7.1 (7.0-16.0) 11/08/17 06:45 BUN 10 mg/dL (7-25) 11/08/17 06:45 Creatinine 0.5 mg/dL (0.7-1.3) L 11/08/17 06:45 Est GFR ( Amer) > 60.0 ml/min (>90) 11/08/17 06:45 Est GFR (Non-Af Amer) > 60.0 ml/min 11/08/17 06:45 BUN/Creatinine Ratio 20.0 11/08/17 06:45 Glucose 123 mg/dL (70-105) H 11/08/17 06:45 POC Glucose 224 MG/DL (70 - 105) H 11/06/17 04:46 Hemoglobin A1c % 5.7 % (4.0-6.0) 11/06/17 06:00 Whole Bld Lactic Acid 1.93 mmol/L (0.60-1.99) 11/02/17 14:15 Calcium 7.6 mg/dL (8.6-10.3) L 11/08/17 06:45 Magnesium 2.0 mg/dL (1.9-2.7) 11/02/17 14:15 Iron 16 ug/dL (38-169) L 11/02/17 16:30 TIBC 176 ug/dL (250-450) L 11/02/17 16:30 Iron Saturation 9 % (15-55) L 11/02/17 16:30 Unsaturated IBC 160 ug/dL (111-343) 11/02/17 16:30 Ferritin 12 ng/mL (30-400) L 11/02/17 16:30 Total Bilirubin 0.3 mg/dL (0.3-1.0) 11/06/17 06:00 AST 11 U/L (13-39) L 11/06/17 06:00 ALT 17 U/L (7-52) 11/06/17 06:00 Alkaline Phosphatase 37 U/L (34-104) 11/06/17 06:00 B-Natriuretic Peptide 23.9 pg/mL (5.0-100.0) 11/02/17 14:15 Total Protein 4.4 gm/dL (6.0-8.3) L 11/06/17 06:00 Albumin 2.3 gm/dL (4.2-5.5) L 11/06/17 06:00 Globulin 2.1 gm/dL 11/06/17 06:00 Albumin/Globulin Ratio 1.1 (1.0-1.8) 11/06/17 06:00 Vitamin B12 391 pg/mL (232-1245) 11/03/17 14:15 Folic Acid 11.0 ng/mL (>3.0) 11/03/17 14:15 TSH 1.36 uIU/ml (0.34-5.60) 11/02/17 14:15 Influenza A (Rapid) NEG FOR INF A 11/02/17 14:15 Influenza B (Rapid) NEG FOR INF B 11/02/17 14:15 Blood Type B POSITIVE 11/06/17 06:00 Antibody Screen NEGATIVE 11/06/17 06:00 Crossmatch See Detail 11/06/17 06:00 - Physical Exam Vitals and I&O: Vital Signs Temp 97.0 F 11/08/17 09:59 Pulse 97 11/08/17 09:59 Resp 19 11/08/17 09:59 BP 121/63 11/08/17 09:59 Pulse Ox 95 11/08/17 09:59 Intake & Output 11/07/17 11/08/17 11/08/17 18:59 06:59 18:59 Intake Total 1700 1030 1000 Output Total 1200 Balance 1700 -170 1000 Weight (lbs) 82.554 kg 85.275 kg Intake: Intake, IV Amount 1000 Sodium Chloride 0.9% 1, 1000 000 ml @ 100 mls/hr IV . Q10H [facility] Rx#:[id number] Oral 600 240 Tube Feeding 600 670 Blood Product 500 Other 120 Output: Urine 1200 Other: # Voids 3 # Bowel Movements 2 Stool Characteristics Formed Hard Active Medications: Current Medications Acetaminophen (Tylenol) 650 mg PO Q4HR PRN PRN Reason: MILD PAIN Stop: 01/01/18 20:56 Last Admin: 11/07/17 14:19 Dose: 650 mg Albuterol Sulfate (Albuterol 2.5mg/3ml Neb Ud) 2.5 mg HHN Q4H PRN PRN Reason: SOB/WHEEZING Amlodipine Besylate (Norvasc) 10 mg GT DAILY [facility] Stop: 01/02/18 08:59 Last Admin: 11/08/17 09:04 Dose: 10 mg Artificial Tears (Artificial Tears Ophth Soln) 1 drop EACH EYE BID PRN PRN Reason: DRY EYES Stop: 01/02/18 07:38 Atorvastatin Calcium (Lipitor) 20 mg GT HS [facility] Stop: 01/01/18 20:59 Last Admin: 11/07/17 21:04 Dose: 20 mg Benazepril HCl (Lotensin) 20 mg GT BID [facility] Stop: 01/02/18 08:59 Last Admin: 11/08/17 09:04 Dose: 20 mg Bisacodyl (Dulcolax 10 Mg Supp) 10 mg RC DAILY PRN PRN Reason: Constipation Stop: 01/01/18 20:56 Docusate Sodium (Colace) 100 mg PO BID [facility] Stop: 01/02/18 08:59 Last Admin: 11/08/17 09:04 Dose: 100 mg Doxazosin Mesylate (Cardura) 1 mg GT HS [facility] Stop: 01/02/18 20:59 Last Admin: 11/07/17 21:04 Dose: 1 mg Dutasteride (Avodart) 0.5 mg PO DAILY [facility] PRN Reason: Protocol Stop: 01/03/18 08:59 Last Admin: 11/08/17 09:03 Dose: 0.5 mg Famotidine (Pepcid) 20 mg GT DAILY [facility] Stop: 01/03/18 08:59 Last Admin: 11/08/17 09:04 Dose: 20 mg Sodium Chloride (Nacl 0.9%) 1,000 mls @ 100 mls/hr IV .Q10H [facility] Stop: 01/01/18 22:09 Last Admin: 11/08/17 09:04 Dose: 100 mls/hr Pantoprazole Sodium 80 mg/ (Sodium Chloride) 100 mls @ 10 mls/hr IV Q24HR [facility] Stop: 01/03/18 22:29 Last Admin: 11/07/17 21:57 Dose: 10 mls/hr Isosorbide Dinitrate (Isordil) 30 mg GT DAILY [facility] Stop: 01/03/18 08:59 Last Admin: 11/08/17 09:03 Dose: 30 mg Lorazepam (Ativan) 1 mg GT Q6H PRN; Protocol PRN Reason: Agitation Stop: 01/02/18 12:56 Last Admin: 11/06/17 22:59 Dose: 1 mg Magnesium Hydroxide (Milk Of Magnesia) 30 ml GT DAILY PRN PRN Reason: Constipation Stop: 01/02/18 12:56 Metformin HCl (Glucophage) 500 mg GT BID [facility] Stop: 01/02/18 16:59 Last Admin: 11/08/17 09:03 Dose: 500 mg Morphine Sulfate (Morphine) 1 mg IV Q3HR PRN PRN Reason: moderate pain Stop: 01/01/18 23:37 Last Admin: 11/05/17 16:38 Dose: 1 mg Ondansetron HCl (Zofran) 4 mg IV Q6H PRN PRN Reason: Nausea / Vomiting Stop: 01/01/18 23:37 Last Admin: 11/07/17 14:21 Dose: 4 mg Ondansetron HCl (Zofran Odt) 4 mg SL Q8H PRN PRN Reason: Nausea / Vomiting Stop: 01/02/18 13:55 Quetiapine Fumarate 200 mg/ (Quetiapine Fumarate 50 mg) 250 mg PO HS [facility] Stop: 01/04/18 20:59 Last Admin: 11/07/17 21:04 Dose: 250 mg - Procedures Procedures: Procedures Procedure Code Date BLOOD TRANSFUSION SERVICE 44148 11/02/17 TRANSFUSE NONAUT RED BLOOD CELLS IN PERIPH VEIN, PERC 57984O8 11/02/17 Assessment/Plan - Problem List Patient Problems: All Active Problems COFFEE GROUND EMESIS (Acute) - Assessment Assessment: Current Active Problems Problem Status Onset COFFEE GROUND EMESIS Acute severe anemia schizophrenia gerd htn hypercholesteremia - Plan Plan: gi f/u iv for hydration continue current orders Nutritional Asmnt/Malnutr-PDOC - Dietary Evaluation Malnutrition Findings (Please click <Entered> for more info): Nutritional Asmnt/Malnutrition Start: 11/06/17 17: 30 Text: Status: Complete Freq: Document 11/06/17 17:30 [facility] (Rec: 11/06/17 17:50 [id number] Nutritional Asmnt/Malnutrition Patient General Information Nutritional Screening Moderate Risk Diagnosis upper GI bleed Pertinent Medical Hx/Surgical Hx schizophrenia, GERD, depression, esophageal CA, HTN , hypercholesterolemia Subjective Information Pt seen sleeping at time of visit, lunch tray at bedside. Spoke with RN, pt now on both clear liquid diet and bolus feeding. Pt tolerated clear liquid well. Per nurse note, pt had coffee ground spit and 1 black stool today. Current Diet Order/ Nutrition Support clear liquid, isosource 1.5 335ml bolus feeding QID Pertinent Medications colace, glucophage, nacl 0.9% Pertinent Labs 11/06 na 137, K 3.8, Cl 109, BUN 19, Cr 0.6, glucose 262, POC 224, Ca 7.8 Nutritional Hx/Data Height 1.68 m Height (Calculated Centimeters) 167.6 Current Weight (lbs) 72.575 kg Weight (Calculated Kilograms) 72.6 Weight (Calculated Grams) 30424.8 [place] Body Weight 142 % [place] Body Weight 113 Body Mass Index (BMI) 25.8 Weight Status Overweight GI Symptoms GI Symptoms None Last BM 2/6 Difficult in: None Skin Integrity/Comment: reddened to sacram Estimated Nutritional Goals Calories/Kcals/Kg 25-30 Kcals Calculated 5776-6040 Protein g/k-1.2 Protein Calculated 72-86 Fluid: ml 1800-2160ml (1ml/ckal) Nutritional Problem 1. Problem Problem altered nutrition related lab values Etiology endocrine dysfunction Signs/Symptoms: glucose 262, POC 224 Malnutrition Alert Protein-Calorie Malnutrition N/A Is there a minimum of two criteria No selected? Query Text:Check all the applicable criteria. A minimum of two criteria are recommended for diagnosis of either severe or non-severe malnutrition. Intervention/Recommendation Comments 1. Continue with current diet and bolus feeding as ordered. Bolus feeding provides 2010kcal, 90g protein and 1042ml free water. 2. Monitor PO intake, wt, GI function, labs and skin integrity 3. F/U as high risk in 2-3 days, 11/08-11/09 Expected Outcomes/Goals Expected Outcomes/Goals 1. Pt to meet at least 75% of nutritional needs. 2. Wt stability, skin to remain intact, GI function to improve, labs to approach WNL.
[2017-11-08] MEDS: Albuterol Nebulizer 2.5mg/3mL HHN PRN (19:24)
[2017-11-08] MEDS: Atorvastatin Calcium 10 MG TAB GT SCH (21:41)
[2017-11-08] MEDS: Pantoprazole 80 MG in Sodium Chloride 0.9% 100 ML IV SCH (22:51)
[2017-11-09 06:54] LABS: % BASOPHILS 0.6 % (0.0-2.0); % EOSINOPHILS 1.1 % (0.0-5.0); % LYMPHOCYTES 6.5 % (20.0-50.0); % MONOCYTES 6.3 % (2.0-10.0); % NEUTROPHILS 85.5 % (40.0-80.0); EOSINOPHILE ABSOLUTE 0.1 Th/cmm (0.1-0.4); LYMPHOCYTE ABSOLUTE 0.3 Th/cmm (1.5-3.0); MEAN CELL VOLUME 85.5 fl (80-99); MEAN CORPUSCULAR HEMOGLOBIN 27.8 pg (26.0-30.0); MEAN CORPUSCULAR HGB CONC 32.5 pg (28.0-36.0); MEAN PLATELET VOLUME 7.2 fl; MONOCYTE ABSOLUTE 0.3 Th/cmm (0.3-1.0); NEUTROPHILE ABSOLUTE 4.1 Th/cmm (1.8-8.0); PLATELET COUNT 225 Th/cmm (150-400); RED BLOOD COUNT 2.77 Mil/cmm (4.30-5.70); RED CELL DISTRIBUTION WIDTH 14.7 % (11.5-20.0); WHITE BLOOD COUNT 4.8 Th/cmm (4.8-10.8)
[2017-11-09 07:08] LABS: HEMATOCRIT 23.6 % (41.0-60); HEMOGLOBIN 7.7 gm/dL (12-16)
[2017-11-09 07:13] LABS: ANION GAP 10.8 (7.0-16.0); BUN - UREA NITROGEN 9 mg/dL (7-25); CALCIUM SERUM 7.9 mg/dL (8.6-10.3); CARBON DIOXIDE 23.7 mEq/L (21.0-31.0); CHLORIDE 103 mEq/L (98-107); CREATININE - SERUM 0.6 mg/dL (0.7-1.3); GFR AFRICAN-AMERICAN > 60.0 ml/min (>90); GFR NON AFRICAN-AMERICAN > 60.0 ml/min; GLUCOSE 139 mg/dL (70-105); POTASSIUM SERUM 3.5 mEq/L (3.5-5.1); SODIUM SERUM 134 mEq/L (136-145)
[2017-11-09] MEDS: Sodium Chloride 0.9% 1,000 ML IV SCH (12:42)
--- NOTE | 2017-11-09 16:15 | General Progress Note ---
Subjective - Review of Systems Events since last encounter: comfortable Objective - Results Result Diagrams: 11/09/17 06:05 11/09/17 06:05 Recent Labs: Laboratory Last Values WBC 4.8 Th/cmm (4.8-10.8) 11/09/17 06:05 RBC 2.77 Mil/cmm (4.30-5.70) L 11/09/17 06:05 Hgb 7.7 gm/dL (12-16) L* 11/09/17 06:05 Hct 23.6 % (41.0-60) L 11/09/17 06:05 MCV 85.5 fl (80-99) 11/09/17 06:05 MCH 27.8 pg (26.0-30.0) 11/09/17 06:05 MCHC Differential 32.5 pg (28.0-36.0) 11/09/17 06:05 RDW 14.7 % (11.5-20.0) 11/09/17 06:05 Plt Count 225 Th/cmm (150-400) 11/09/17 06:05 MPV 7.2 fl 11/09/17 06:05 Neutrophils % 85.5 % (40.0-80.0) H 11/09/17 06:05 Band Neutrophils % 1 % (0-10) 11/05/17 06:10 Lymphocytes % 6.5 % (20.0-50.0) L 11/09/17 06:05 Monocytes % 6.3 % (2.0-10.0) 11/09/17 06:05 Eosinophils % 1.1 % (0.0-5.0) 11/09/17 06:05 Basophils % 0.6 % (0.0-2.0) 11/09/17 06:05 Neutrophils (Manual) 92 % (40-80) H 11/06/17 06:00 Lymphocytes 7 % (20-50) L 11/06/17 06:00 Monocytes 1 % (2-10) L 11/06/17 06:00 Nucleated RBCs 2.0 % (0-0) H 11/06/17 06:00 Hypochromia 1+ 11/05/17 06:10 Platelet Estimate ADEQUATE (NORMAL) 11/06/17 06:00 Anisocytosis 1+ 11/06/17 06:00 Total Retics Counted 1.3 % (0.5-1.5) 11/03/17 12:55 Absolute Retic 39.9 Th/cmm 11/03/17 12:55 Corrected Retic Count 0.7 % (0.5-1.5) 11/03/17 12:55 PT 10.7 SECONDS (9.5-11.5) 11/04/17 05:54 INR 1.03 (0.5-1.4) 11/04/17 05:54 Sodium 134 mEq/L (136-145) L 11/09/17 06:05 Potassium 3.5 mEq/L (3.5-5.1) 11/09/17 06:05 Chloride 103 mEq/L (98-107) 11/09/17 06:05 Carbon Dioxide 23.7 mEq/L (21.0-31.0) 11/09/17 06:05 Anion Gap 10.8 (7.0-16.0) 11/09/17 06:05 BUN 9 mg/dL (7-25) 11/09/17 06:05 Creatinine 0.6 mg/dL (0.7-1.3) L 11/09/17 06:05 Est GFR ( Amer) > 60.0 ml/min (>90) 11/09/17 06:05 Est GFR (Non-Af Amer) > 60.0 ml/min 11/09/17 06:05 BUN/Creatinine Ratio 15.0 11/09/17 06:05 Glucose 139 mg/dL (70-105) H 11/09/17 06:05 POC Glucose 224 MG/DL (70 - 105) H 11/06/17 04:46 Hemoglobin A1c % 5.7 % (4.0-6.0) 11/06/17 06:00 Whole Bld Lactic Acid 1.93 mmol/L (0.60-1.99) 11/02/17 14:15 Calcium 7.9 mg/dL (8.6-10.3) L 11/09/17 06:05 Magnesium 2.0 mg/dL (1.9-2.7) 11/02/17 14:15 Iron 16 ug/dL (38-169) L 11/02/17 16:30 TIBC 176 ug/dL (250-450) L 11/02/17 16:30 Iron Saturation 9 % (15-55) L 11/02/17 16:30 Unsaturated IBC 160 ug/dL (111-343) 11/02/17 16:30 Ferritin 12 ng/mL (30-400) L 11/02/17 16:30 Total Bilirubin 0.3 mg/dL (0.3-1.0) 11/06/17 06:00 AST 11 U/L (13-39) L 11/06/17 06:00 ALT 17 U/L (7-52) 11/06/17 06:00 Alkaline Phosphatase 37 U/L (34-104) 11/06/17 06:00 B-Natriuretic Peptide 23.9 pg/mL (5.0-100.0) 11/02/17 14:15 Total Protein 4.4 gm/dL (6.0-8.3) L 11/06/17 06:00 Albumin 2.3 gm/dL (4.2-5.5) L 11/06/17 06:00 Globulin 2.1 gm/dL 11/06/17 06:00 Albumin/Globulin Ratio 1.1 (1.0-1.8) 11/06/17 06:00 Vitamin B12 391 pg/mL (232-1245) 11/03/17 14:15 Folic Acid 11.0 ng/mL (>3.0) 11/03/17 14:15 TSH 1.36 uIU/ml (0.34-5.60) 11/02/17 14:15 Influenza A (Rapid) NEG FOR INF A 11/02/17 14:15 Influenza B (Rapid) NEG FOR INF B 11/02/17 14:15 Blood Type B POSITIVE 11/06/17 06:00 Antibody Screen NEGATIVE 11/06/17 06:00 Crossmatch See Detail 11/06/17 06:00 - Physical Exam Vitals and I&O: Vital Signs Temp 97.2 F 11/09/17 15:27 Pulse 98 11/09/17 15:27 Resp 18 11/09/17 15:27 BP 108/58 11/09/17 15:27 Pulse Ox 95 11/09/17 15:27 Intake & Output 11/08/17 11/09/17 11/09/17 18:59 06:59 18:59 Intake Total 2071.667 3730 Output Total 1700 Balance 2070.667 2030 Weight (lbs) 85.729 kg Intake: Intake, IV Amount 2070.667 1100 Pantoprazole 80 mg In 100 100 Sodium Chloride 0.9% 100 ml @ 10 mls/hr IV Q24HR [facility] Rx#:[id number] Sodium Chloride 0.9% 1, 1265.238 3290 000 ml @ 100 mls/hr IV . Q10H [facility] Rx#:[id number] Oral 1250 Tube Feeding 1380 Output: Urine 1700 Other: # Bowel Movements 0 Active Medications: Current Medications Acetaminophen (Tylenol) 650 mg PO Q4HR PRN PRN Reason: MILD PAIN Stop: 01/01/18 20:56 Last Admin: 11/08/17 16:57 Dose: 650 mg Albuterol Sulfate (Albuterol 2.5mg/3ml Neb Ud) 2.5 mg HHN Q4H PRN PRN Reason: SOB/WHEEZING Last Admin: 11/08/17 19:24 Dose: 2.5 mg Amlodipine Besylate (Norvasc) 10 mg GT DAILY [facility] Stop: 01/02/18 08:59 Last Admin: 11/09/17 09:40 Dose: 10 mg Artificial Tears (Artificial Tears Ophth Soln) 1 drop EACH EYE BID PRN PRN Reason: DRY EYES Stop: 01/02/18 07:38 Atorvastatin Calcium (Lipitor) 20 mg GT HS [facility] Stop: 01/01/18 20:59 Last Admin: 11/08/17 21:41 Dose: 20 mg Benazepril HCl (Lotensin) 20 mg GT BID [facility] Stop: 01/02/18 08:59 Last Admin: 11/09/17 09:39 Dose: 20 mg Bisacodyl (Dulcolax 10 Mg Supp) 10 mg RC DAILY PRN PRN Reason: Constipation Stop: 01/01/18 20:56 Docusate Sodium (Colace) 100 mg PO BID [facility] Stop: 01/02/18 08:59 Last Admin: 11/09/17 09:39 Dose: 100 mg Doxazosin Mesylate (Cardura) 1 mg GT HS [facility] Stop: 01/02/18 20:59 Last Admin: 11/08/17 21:41 Dose: 1 mg Dutasteride (Avodart) 0.5 mg PO DAILY [facility] PRN Reason: Protocol Stop: 01/03/18 08:59 Last Admin: 11/09/17 09:39 Dose: 0.5 mg Famotidine (Pepcid) 20 mg GT DAILY [facility] Stop: 01/03/18 08:59 Last Admin: 11/09/17 09:39 Dose: 20 mg Sodium Chloride (Nacl 0.9%) 1,000 mls @ 100 mls/hr IV .Q10H [facility] Stop: 01/01/18 22:09 Last Admin: 11/09/17 12:42 Dose: 100 mls/hr Pantoprazole Sodium 80 mg/ (Sodium Chloride) 100 mls @ 10 mls/hr IV Q24HR [facility] Stop: 01/03/18 22:29 Last Infusion: 11/09/17 06:25 Dose: Infused Isosorbide Dinitrate (Isordil) 30 mg GT DAILY [facility] Stop: 01/03/18 08:59 Last Admin: 11/09/17 09:39 Dose: 30 mg Lorazepam (Ativan) 1 mg GT Q6H PRN; Protocol PRN Reason: Agitation Stop: 01/02/18 12:56 Last Admin: 11/06/17 22:59 Dose: 1 mg Magnesium Hydroxide (Milk Of Magnesia) 30 ml GT DAILY PRN PRN Reason: Constipation Stop: 01/02/18 12:56 Metformin HCl (Glucophage) 500 mg GT BID [facility] Stop: 01/02/18 16:59 Last Admin: 11/09/17 09:39 Dose: 500 mg Morphine Sulfate (Morphine) 1 mg IV Q3HR PRN PRN Reason: moderate pain Stop: 01/01/18 23:37 Last Admin: 11/05/17 16:38 Dose: 1 mg Ondansetron HCl (Zofran) 4 mg IV Q6H PRN PRN Reason: Nausea / Vomiting Stop: 01/01/18 23:37 Last Admin: 11/08/17 22:45 Dose: 4 mg Ondansetron HCl (Zofran Odt) 4 mg SL Q8H PRN PRN Reason: Nausea / Vomiting Stop: 01/02/18 13:55 Quetiapine Fumarate 200 mg/ (Quetiapine Fumarate 50 mg) 250 mg PO HS [facility] Stop: 01/04/18 20:59 Last Admin: 11/08/17 21:42 Dose: 250 mg - Procedures Procedures: Procedures Procedure Code Date BLOOD TRANSFUSION SERVICE 32075 11/02/17 TRANSFUSE NONAUT RED BLOOD CELLS IN PERIPH VEIN, PERC 77313O4 11/02/17 Assessment/Plan - Problem List Patient Problems: All Active Problems COFFEE GROUND EMESIS (Acute) - Assessment Assessment: Current Active Problems Problem Status Onset COFFEE GROUND EMESIS Acute severe anemia schizophrenia gerd htn hypercholesteremia - Plan Plan: gi f/u iv for hydration continue current orders Nutritional Asmnt/Malnutr-PDOC - Dietary Evaluation Malnutrition Findings (Please click <Entered> for more info): Nutritional Asmnt/Malnutrition Start: 11/06/17 17: 30 Text: Status: Complete Freq: Document 11/06/17 17:30 [email or web address] (Rec: 11/06/17 17:50 [email or web address]) Nutritional Asmnt/Malnutrition Patient General Information Nutritional Screening Moderate Risk Diagnosis upper GI bleed Pertinent Medical Hx/Surgical Hx schizophrenia, GERD, depression, esophageal CA, HTN , hypercholesterolemia Subjective Information Pt seen sleeping at time of visit, lunch tray at bedside. Spoke with RN, pt now on both clear liquid diet and bolus feeding. Pt tolerated clear liquid well. Per nurse note, pt had coffee ground spit and 1 black stool today. Current Diet Order/ Nutrition Support clear liquid, isosource 1.5 335ml bolus feeding QID Pertinent Medications colace, glucophage, nacl 0.9% Pertinent Labs 11/06 na 137, K 3.8, Cl 109, BUN 19, Cr 0.6, glucose 262, POC 224, Ca 7.8 Nutritional Hx/Data Height 1.68 m Height (Calculated Centimeters) 167.6 Current Weight (lbs) 72.575 kg Weight (Calculated Kilograms) 72.6 Weight (Calculated Grams) 46084.8 [place] Body Weight 142 % [place] Body Weight 113 Body Mass Index (BMI) 25.8 Weight Status Overweight GI Symptoms GI Symptoms None Last BM 2/6 Difficult in: None Skin Integrity/Comment: reddened to sacram Estimated Nutritional Goals Calories/Kcals/Kg 25-30 Kcals Calculated 0914-2846 Protein g/k-1.2 Protein Calculated 72-86 Fluid: ml 1800-2160ml (1ml/ckal) Nutritional Problem 1. Problem Problem altered nutrition related lab values Etiology endocrine dysfunction Signs/Symptoms: glucose 262, POC 224 Malnutrition Alert Protein-Calorie Malnutrition N/A Is there a minimum of two criteria No selected? Query Text:Check all the applicable criteria. A minimum of two criteria are recommended for diagnosis of either severe or non-severe malnutrition. Intervention/Recommendation Comments 1. Continue with current diet and bolus feeding as ordered. Bolus feeding provides 2010kcal, 90g protein and 1042ml free water. 2. Monitor PO intake, wt, GI function, labs and skin integrity 3. F/U as high risk in 2-3 days, 11/08-11/09 Expected Outcomes/Goals Expected Outcomes/Goals 1. Pt to meet at least 75% of nutritional needs. 2. Wt stability, skin to remain intact, GI function to improve, labs to approach WNL.
[2017-11-09] MEDS: Atorvastatin Calcium 10 MG TAB GT SCH (21:18)
[2017-11-09] MEDS: Pantoprazole 80 MG in Sodium Chloride 0.9% 100 ML IV SCH (21:37)
[2017-11-10] MEDS: Sodium Chloride 0.9% 1,000 ML IV SCH ×2 (10:38→22:04)
--- NOTE | 2017-11-10 11:39 | Internal Medicine Prog Note ---
Internal Medicine Subjective - Subjective Service Date: 11/10/17 Patient seen and examined:: with staff Patient is:: awake Per staff patient has:: tolerating meds Internal Medicine Objective - Results Result Diagrams: 11/09/17 06:05 11/09/17 06:05 Recent Labs: Laboratory Last Values WBC 4.8 Th/cmm (4.8-10.8) 11/09/17 06:05 RBC 2.77 Mil/cmm (4.30-5.70) L 11/09/17 06:05 Hgb 7.7 gm/dL (12-16) L* 11/09/17 06:05 Hct 23.6 % (41.0-60) L 11/09/17 06:05 MCV 85.5 fl (80-99) 11/09/17 06:05 MCH 27.8 pg (26.0-30.0) 11/09/17 06:05 MCHC Differential 32.5 pg (28.0-36.0) 11/09/17 06:05 RDW 14.7 % (11.5-20.0) 11/09/17 06:05 Plt Count 225 Th/cmm (150-400) 11/09/17 06:05 MPV 7.2 fl 11/09/17 06:05 Neutrophils % 85.5 % (40.0-80.0) H 11/09/17 06:05 Band Neutrophils % 1 % (0-10) 11/05/17 06:10 Lymphocytes % 6.5 % (20.0-50.0) L 11/09/17 06:05 Monocytes % 6.3 % (2.0-10.0) 11/09/17 06:05 Eosinophils % 1.1 % (0.0-5.0) 11/09/17 06:05 Basophils % 0.6 % (0.0-2.0) 11/09/17 06:05 Neutrophils (Manual) 92 % (40-80) H 11/06/17 06:00 Lymphocytes 7 % (20-50) L 11/06/17 06:00 Monocytes 1 % (2-10) L 11/06/17 06:00 Nucleated RBCs 2.0 % (0-0) H 11/06/17 06:00 Hypochromia 1+ 11/05/17 06:10 Platelet Estimate ADEQUATE (NORMAL) 11/06/17 06:00 Anisocytosis 1+ 11/06/17 06:00 Total Retics Counted 1.3 % (0.5-1.5) 11/03/17 12:55 Absolute Retic 39.9 Th/cmm 11/03/17 12:55 Corrected Retic Count 0.7 % (0.5-1.5) 11/03/17 12:55 PT 10.7 SECONDS (9.5-11.5) 11/04/17 05:54 INR 1.03 (0.5-1.4) 11/04/17 05:54 Sodium 134 mEq/L (136-145) L 11/09/17 06:05 Potassium 3.5 mEq/L (3.5-5.1) 11/09/17 06:05 Chloride 103 mEq/L (98-107) 11/09/17 06:05 Carbon Dioxide 23.7 mEq/L (21.0-31.0) 11/09/17 06:05 Anion Gap 10.8 (7.0-16.0) 11/09/17 06:05 BUN 9 mg/dL (7-25) 11/09/17 06:05 Creatinine 0.6 mg/dL (0.7-1.3) L 11/09/17 06:05 Est GFR ( Amer) > 60.0 ml/min (>90) 11/09/17 06:05 Est GFR (Non-Af Amer) > 60.0 ml/min 11/09/17 06:05 BUN/Creatinine Ratio 15.0 11/09/17 06:05 Glucose 139 mg/dL (70-105) H 11/09/17 06:05 POC Glucose 224 MG/DL (70 - 105) H 11/06/17 04:46 Hemoglobin A1c % 5.7 % (4.0-6.0) 11/06/17 06:00 Whole Bld Lactic Acid 1.93 mmol/L (0.60-1.99) 11/02/17 14:15 Calcium 7.9 mg/dL (8.6-10.3) L 11/09/17 06:05 Magnesium 2.0 mg/dL (1.9-2.7) 11/02/17 14:15 Iron 16 ug/dL (38-169) L 11/02/17 16:30 TIBC 176 ug/dL (250-450) L 11/02/17 16:30 Iron Saturation 9 % (15-55) L 11/02/17 16:30 Unsaturated IBC 160 ug/dL (111-343) 11/02/17 16:30 Ferritin 12 ng/mL (30-400) L 11/02/17 16:30 Total Bilirubin 0.3 mg/dL (0.3-1.0) 11/06/17 06:00 AST 11 U/L (13-39) L 11/06/17 06:00 ALT 17 U/L (7-52) 11/06/17 06:00 Alkaline Phosphatase 37 U/L (34-104) 11/06/17 06:00 B-Natriuretic Peptide 23.9 pg/mL (5.0-100.0) 11/02/17 14:15 Total Protein 4.4 gm/dL (6.0-8.3) L 11/06/17 06:00 Albumin 2.3 gm/dL (4.2-5.5) L 11/06/17 06:00 Globulin 2.1 gm/dL 11/06/17 06:00 Albumin/Globulin Ratio 1.1 (1.0-1.8) 11/06/17 06:00 Vitamin B12 391 pg/mL (232-1245) 11/03/17 14:15 Folic Acid 11.0 ng/mL (>3.0) 11/03/17 14:15 TSH 1.36 uIU/ml (0.34-5.60) 11/02/17 14:15 Influenza A (Rapid) NEG FOR INF A 11/02/17 14:15 Influenza B (Rapid) NEG FOR INF B 11/02/17 14:15 Blood Type B POSITIVE 11/06/17 06:00 Antibody Screen NEGATIVE 11/06/17 06:00 Crossmatch See Detail 11/06/17 06:00 - Physical Exam Vitals and I&O: Vital Signs Temp 100.1 F 11/10/17 08:29 Pulse 100 11/10/17 08:30 Resp 18 11/10/17 10:00 BP 110/64 11/10/17 08:30 Pulse Ox 99 11/10/17 08:29 Intake & Output 0211/10/17 11/10/17 18:59 06:59 18:59 Intake Total 1670 1100 Balance 1670 1100 Weight (lbs) 190 lb Intake: Intake, IV Amount 1100 Pantoprazole 80 mg In 100 Sodium Chloride 0.9% 100 ml @ 10 mls/hr IV Q24HR [facility] Rx#:[id number] Sodium Chloride 0.9% 1, 1000 000 ml @ 100 mls/hr IV . Q10H [facility] Rx#:[id number] Oral 500 Tube Feeding 670 Other 500 Other: # Voids 3 # Bowel Movements 2 Stool Characteristics Formed Black Active Medications: Current Medications Acetaminophen (Tylenol) 650 mg PO Q4HR PRN PRN Reason: MILD PAIN Stop: 01/01/18 20:56 Last Admin: 11/09/17 21:29 Dose: 650 mg Albuterol Sulfate (Albuterol 2.5mg/3ml Neb Ud) 2.5 mg HHN Q4H PRN PRN Reason: SOB/WHEEZING Last Admin: 11/08/17 19:24 Dose: 2.5 mg Amlodipine Besylate (Norvasc) 10 mg GT DAILY [facility] Stop: 01/02/18 08:59 Last Admin: 11/10/17 08:30 Dose: 10 mg Artificial Tears (Artificial Tears Ophth Soln) 1 drop EACH EYE BID PRN PRN Reason: DRY EYES Stop: 01/02/18 07:38 Atorvastatin Calcium (Lipitor) 20 mg GT HS [facility] Stop: 01/01/18 20:59 Last Admin: 11/09/17 21:18 Dose: 20 mg Benazepril HCl (Lotensin) 20 mg GT BID [facility] Stop: 01/02/18 08:59 Last Admin: 11/10/17 08:29 Dose: 20 mg Bisacodyl (Dulcolax 10 Mg Supp) 10 mg RC DAILY PRN PRN Reason: Constipation Stop: 01/01/18 20:56 Docusate Sodium (Colace) 100 mg PO BID [facility] Stop: 01/02/18 08:59 Last Admin: 11/10/17 08:30 Dose: 100 mg Doxazosin Mesylate (Cardura) 1 mg GT HS [facility] Stop: 01/02/18 20:59 Last Admin: 11/09/17 21:19 Dose: 1 mg Dutasteride (Avodart) 0.5 mg PO DAILY [facility] PRN Reason: Protocol Stop: 01/03/18 08:59 Last Admin: 11/10/17 08:29 Dose: 0.5 mg Famotidine (Pepcid) 20 mg GT DAILY [facility] Stop: 01/03/18 08:59 Last Admin: 11/10/17 08:30 Dose: 20 mg Sodium Chloride (Nacl 0.9%) 1,000 mls @ 100 mls/hr IV .Q10H [facility] Stop: 01/01/18 22:09 Last Admin: 11/10/17 10:38 Dose: 100 mls/hr Pantoprazole Sodium 80 mg/ (Sodium Chloride) 100 mls @ 10 mls/hr IV Q24HR [facility] Stop: 01/03/18 22:29 Last Infusion: 11/10/17 06:09 Dose: Infused Isosorbide Dinitrate (Isordil) 30 mg GT DAILY [facility] Stop: 01/03/18 08:59 Last Admin: 11/10/17 08:29 Dose: 30 mg Lorazepam (Ativan) 1 mg GT Q6H PRN; Protocol PRN Reason: Agitation Stop: 01/02/18 12:56 Last Admin: 11/10/17 02:54 Dose: 1 mg Magnesium Hydroxide (Milk Of Magnesia) 30 ml GT DAILY PRN PRN Reason: Constipation Stop: 01/02/18 12:56 Metformin HCl (Glucophage) 500 mg GT BID [facility] Stop: 01/02/18 16:59 Last Admin: 11/10/17 08:29 Dose: 500 mg Ondansetron HCl (Zofran) 4 mg IV Q6H PRN PRN Reason: Nausea / Vomiting Stop: 01/01/18 23:37 Last Admin: 11/10/17 02:19 Dose: 4 mg Ondansetron HCl (Zofran Odt) 4 mg SL Q8H PRN PRN Reason: Nausea / Vomiting Stop: 01/02/18 13:55 Quetiapine Fumarate 200 mg/ (Quetiapine Fumarate 50 mg) 250 mg PO HS [facility] Stop: 01/04/18 20:59 Last Admin: 11/09/17 21:19 Dose: 250 mg General: weak, alert HEENT: NC/AT, PERRLA Neck: Supple Lungs: CTAB Cardiovascular: RRR, Normal S1, Normal S2, without murmur Abdomen: soft, non-tender, non-distended, positive bowel sound Neurological: alert - Procedures Procedures: Procedures Procedure Code Date BLOOD TRANSFUSION SERVICE 21540 11/02/17 TRANSFUSE NONAUT RED BLOOD CELLS IN PERIPH VEIN, PERC 60067K9 11/02/17 Internal Medicine Assmt/Plan - Assessment Assessment: severe anemia schizophrenia gerd htn hypercholesteremia - Plan Plan: ivf for hydration follow up labs in am continue current orders Nutritional Asmnt/Malnutr-PDOC - Dietary Evaluation Malnutrition Findings (Please click <Entered> for more info): Nutritional Asmnt/Malnutrition Start: 11/06/17 17: 30 Text: Status: Complete Freq: Document 11/06/17 17:30 [email or web address] (Rec: 11/06/17 17:50 LCHENG [id number]) Nutritional Asmnt/Malnutrition Patient General Information Nutritional Screening Moderate Risk Diagnosis upper GI bleed Pertinent Medical Hx/Surgical Hx schizophrenia, GERD, depression, esophageal CA, HTN , hypercholesterolemia Subjective Information Pt seen sleeping at time of visit, lunch tray at bedside. Spoke with RN, pt now on both clear liquid diet and bolus feeding. Pt tolerated clear liquid well. Per nurse note, pt had coffee ground spit and 1 black stool today. Current Diet Order/ Nutrition Support clear liquid, isosource 1.5 335ml bolus feeding QID Pertinent Medications colace, glucophage, nacl 0.9% Pertinent Labs 11/06 na 137, K 3.8, Cl 109, BUN 19, Cr 0.6, glucose 262, POC 224, Ca 7.8 Nutritional Hx/Data Height 5 ft 6 in Height (Calculated Centimeters) 167.6 Current Weight (lbs) 160 lb Weight (Calculated Kilograms) 72.6 Weight (Calculated Grams) 11897.8 [place] Body Weight 142 % [place] Body Weight 113 Body Mass Index (BMI) 25.8 Weight Status Overweight GI Symptoms GI Symptoms None Last BM 2/6 Difficult in: None Skin Integrity/Comment: reddened to sacram Estimated Nutritional Goals Calories/Kcals/Kg 25-30 Kcals Calculated 9966-3680 Protein g/k-1.2 Protein Calculated 72-86 Fluid: ml 1800-2160ml (1ml/ckal) Nutritional Problem 1. Problem Problem altered nutrition related lab values Etiology endocrine dysfunction Signs/Symptoms: glucose 262, POC 224 Malnutrition Alert Protein-Calorie Malnutrition N/A Is there a minimum of two criteria No selected? Query Text:Check all the applicable criteria. A minimum of two criteria are recommended for diagnosis of either severe or non-severe malnutrition. Intervention/Recommendation Comments 1. Continue with current diet and bolus feeding as ordered. Bolus feeding provides 2010kcal, 90g protein and 1042ml free water. 2. Monitor PO intake, wt, GI function, labs and skin integrity 3. F/U as high risk in 2-3 days, 11/08-11/09 Expected Outcomes/Goals Expected Outcomes/Goals 1. Pt to meet at least 75% of nutritional needs. 2. Wt stability, skin to remain intact, GI function to improve, labs to approach WNL.
[2017-11-10] MEDS: Albuterol Nebulizer 2.5mg/3mL HHN PRN (20:33)
[2017-11-10] MEDS: Atorvastatin Calcium 10 MG TAB GT SCH (20:50)
[2017-11-10] MEDS: Pantoprazole 80 MG in Sodium Chloride 0.9% 100 ML IV SCH (22:04)
[2017-11-11 06:27] LABS: INR 1.06 (0.5-1.4)
[2017-11-11 06:34] LABS: ANION GAP 7.6 (7.0-16.0); BUN - UREA NITROGEN 7 mg/dL (7-25); CALCIUM SERUM 7.6 mg/dL (8.6-10.3); CARBON DIOXIDE 26.3 mEq/L (21.0-31.0); CHLORIDE 105 mEq/L (98-107); CREATININE - SERUM 0.4 mg/dL (0.7-1.3); GFR AFRICAN-AMERICAN > 60.0 ml/min (>90); GFR NON AFRICAN-AMERICAN > 60.0 ml/min; GLUCOSE 110 mg/dL (70-105); POTASSIUM SERUM 3.9 mEq/L (3.5-5.1); SODIUM SERUM 135 mEq/L (136-145)
[2017-11-11 06:41] LABS: % BASOPHILS 0.1 % (0.0-2.0); % LYMPHOCYTES 8.8 % (20.0-50.0); % MONOCYTES 5.4 % (2.0-10.0); % NEUTROPHILS 83.7 % (40.0-80.0); EOSINOPHILE ABSOLUTE 0.1 Th/cmm (0.1-0.4); LYMPHOCYTE ABSOLUTE 0.3 Th/cmm (1.5-3.0); MEAN CELL VOLUME 85.5 fl (80-99); MEAN CORPUSCULAR HEMOGLOBIN 27.7 pg (26.0-30.0); MEAN CORPUSCULAR HGB CONC 32.4 pg (28.0-36.0); MEAN PLATELET VOLUME 7.3 fl; MONOCYTE ABSOLUTE 0.2 Th/cmm (0.3-1.0); NEUTROPHILE ABSOLUTE 3.2 Th/cmm (1.8-8.0); PLATELET COUNT 214 Th/cmm (150-400); RED BLOOD COUNT 2.54 Mil/cmm (4.30-5.70); RED CELL DISTRIBUTION WIDTH 14.6 % (11.5-20.0)
[2017-11-11 06:44] LABS: HEMATOCRIT 21.7 % (41.0-60); WHITE BLOOD COUNT 3.8 Th/cmm (4.8-10.8)
--- NOTE | 2017-11-11 08:18 | Diagnostic Imaging Report ---
Exam: Portable chest x-ray. HISTORY: Shortness of breath preoperative Findings: Portable examination of chest 0 721 reviewed, compared to prior study 11/02/2017. The study demonstrates cardiomegaly. Mediastinal structures midline. Bony thorax intact. There is evidence for atelectatic changes in left base with pleural thickening and mild obliteration of left costophrenic angle small effusion cannot be excluded The visualized the right lung parenchyma is well aerated. IMPRESSION: Left basilar atelectasis, question of mild infiltrate and small effusion cannot be excluded clinical correlation and follow-up exam, or lateral exam of chest might be helpful.
[2017-11-11] MEDS: Sodium Chloride 0.9% 1,000 ML IV SCH ×2 (10:05→22:44)
[2017-11-11] MEDS ORDERED: Pantoprazole 80 MG in Sodium Chloride 0.9% 100 ML IV SCH (11:30)
[2017-11-11] MEDS ORDERED: Morphine Sulfate 2 mg/mL 1mL Syr IVP PRN ×2 (12:57→12:58)
[2017-11-11] MEDS ORDERED: Morphine Sulfate 2 mg/mL 1mL Syr ONE (13:17)
[2017-11-11] MEDS: Pantoprazole 80 MG in Sodium Chloride 0.9% 100 ML IV SCH ×2 (13:32→22:45)
[2017-11-11] MEDS ORDERED: Propofol 10 mg/mL 20mL Vial **SURGERY USE ONLY IV ONE (14:00)
[2017-11-11] MEDS ORDERED: Lidocaine 2% Gel 5 mL TP ONE (14:00)
[2017-11-11] MEDS ORDERED: Midazolam 1mg/ml 2 ml vial IV ONE (14:20)
[2017-11-11] MEDS ORDERED: fentaNYL Citrate 100 mcg/2mL Vial ONE (14:20)
[2017-11-11] MEDS ORDERED: fentaNYL Citrate 100 mcg/2mL Vial IVP PRN (14:56)
--- NOTE | 2017-11-11 17:07 | Operative Report ---
DATE OF SURGERY: 11/11/2017 PROCEDURE: Esophagogastroduodenoscopy, no biopsy. INDICATION FOR PROCEDURE: Upper GI bleed. CONSENT: Informed consent was obtained from the patient and his sister after outlining benefits and risks. ANESTHESIA USED: Propofol. PREOPERATIVE DIAGNOSIS: Upper GI bleed. POSTOPERATIVE DIAGNOSES: 1. Esophageal cancer involving from 35 cm on the esophagus down to the GE junction at 40 and the cardia. 2. Gastritis. DESCRIPTION OF PROCEDURE: The patient was placed in left lateral position. Upper Olympus endoscope was introduced through the mouth and advanced to the esophagus, which was intubated under direct visualization. Esophageal mucosa was examined on the way down starting from 35 cm towards the esophageal mass with ulcerations; it is involving down to the GE junction at 40 cm and the cardia just below it. Scope was advanced to stomach where the gastric mucosa was examined, it showed a G-tube in place and it showed gastritis. Scope was advanced through the pylorus to the duodenum where the bulb and second part were examined. They were both normal. Scope was withdrawn to the stomach and retroflexed to examine the cardia and fundus. Scope was then straightened and withdrawn while examining the gastric and esophageal mucosa second time. The patient tolerated the procedure well. There were no immediate postoperative complications. RECOMMENDATIONS: 1. PPI. 2. Transfuse if needed. 3. Consider hospice. Thank you, Dr. Preston for allowing me to participate in the care of the patient. If you have any further questions, please let me know. [facility]# [id number]
[2017-11-11] MEDS: Atorvastatin Calcium 10 MG TAB GT SCH (20:51)
[2017-11-12 02:08] LABS: HEMOGLOBIN 9.1 gm/dL (12-16)
[2017-11-12 02:10] LABS: HEMATOCRIT 28.6 % (41.0-60)
[2017-11-12] MEDS: Pantoprazole 80 MG in Sodium Chloride 0.9% 100 ML IV SCH (09:47)
--- NOTE | 2017-11-12 16:19 | General Progress Note ---
Subjective - Review of Systems Events since last encounter: in no acute distress Objective - Results Result Diagrams: 11/12/17 02:00 11/11/17 06:00 Recent Labs: Laboratory Last Values WBC 3.8 Th/cmm (4.8-10.8) L D 11/11/17 06:00 RBC 2.54 Mil/cmm (4.30-5.70) L 11/11/17 06:00 Hgb 9.1 gm/dL (12-16) L 11/12/17 02:00 Hct 28.6 % (41.0-60) L D 11/12/17 02:00 MCV 85.5 fl (80-99) 11/11/17 06:00 MCH 27.7 pg (26.0-30.0) 11/11/17 06:00 MCHC Differential 32.4 pg (28.0-36.0) 11/11/17 06:00 RDW 14.6 % (11.5-20.0) 11/11/17 06:00 Plt Count 214 Th/cmm (150-400) 11/11/17 06:00 MPV 7.3 fl 11/11/17 06:00 Neutrophils % 83.7 % (40.0-80.0) H 11/11/17 06:00 Band Neutrophils % 1 % (0-10) 11/05/17 06:10 Lymphocytes % 8.8 % (20.0-50.0) L 11/11/17 06:00 Monocytes % 5.4 % (2.0-10.0) 11/11/17 06:00 Eosinophils % 2.0 % (0.0-5.0) 11/11/17 06:00 Basophils % 0.1 % (0.0-2.0) 11/11/17 06:00 Neutrophils (Manual) 92 % (40-80) H 11/06/17 06:00 Lymphocytes 7 % (20-50) L 11/06/17 06:00 Monocytes 1 % (2-10) L 11/06/17 06:00 Nucleated RBCs 2.0 % (0-0) H 11/06/17 06:00 Hypochromia 1+ 11/05/17 06:10 Platelet Estimate ADEQUATE (NORMAL) 11/06/17 06:00 Anisocytosis 1+ 11/06/17 06:00 Total Retics Counted 1.3 % (0.5-1.5) 11/03/17 12:55 Absolute Retic 39.9 Th/cmm 11/03/17 12:55 Corrected Retic Count 0.7 % (0.5-1.5) 11/03/17 12:55 PT 11.0 SECONDS (9.5-11.5) 11/11/17 06:00 INR 1.06 (0.5-1.4) 11/11/17 06:00 PTT (Actin FS) 29.2 SECONDS (26.0-38.0) 11/11/17 06:00 Sodium 135 mEq/L (136-145) L 11/11/17 06:00 Potassium 3.9 mEq/L (3.5-5.1) 11/11/17 06:00 Chloride 105 mEq/L (98-107) 11/11/17 06:00 Carbon Dioxide 26.3 mEq/L (21.0-31.0) 11/11/17 06:00 Anion Gap 7.6 (7.0-16.0) 11/11/17 06:00 BUN 7 mg/dL (7-25) 11/11/17 06:00 Creatinine 0.4 mg/dL (0.7-1.3) L 11/11/17 06:00 Est GFR ( Amer) > 60.0 ml/min (>90) 11/11/17 06:00 Est GFR (Non-Af Amer) > 60.0 ml/min 11/11/17 06:00 BUN/Creatinine Ratio 17.5 11/11/17 06:00 Glucose 110 mg/dL (70-105) H 11/11/17 06:00 POC Glucose 114 MG/DL (70 - 105) H 11/11/17 17:27 Hemoglobin A1c % 5.7 % (4.0-6.0) 11/06/17 06:00 Whole Bld Lactic Acid 1.93 mmol/L (0.60-1.99) 11/02/17 14:15 Calcium 7.6 mg/dL (8.6-10.3) L 11/11/17 06:00 Magnesium 2.0 mg/dL (1.9-2.7) 11/02/17 14:15 Iron 16 ug/dL (38-169) L 11/02/17 16:30 TIBC 176 ug/dL (250-450) L 11/02/17 16:30 Iron Saturation 9 % (15-55) L 11/02/17 16:30 Unsaturated IBC 160 ug/dL (111-343) 11/02/17 16:30 Ferritin 12 ng/mL (30-400) L 11/02/17 16:30 Total Bilirubin 0.3 mg/dL (0.3-1.0) 11/06/17 06:00 AST 11 U/L (13-39) L 11/06/17 06:00 ALT 17 U/L (7-52) 11/06/17 06:00 Alkaline Phosphatase 37 U/L (34-104) 11/06/17 06:00 B-Natriuretic Peptide 23.9 pg/mL (5.0-100.0) 11/02/17 14:15 Total Protein 4.4 gm/dL (6.0-8.3) L 11/06/17 06:00 Albumin 2.3 gm/dL (4.2-5.5) L 11/06/17 06:00 Globulin 2.1 gm/dL 11/06/17 06:00 Albumin/Globulin Ratio 1.1 (1.0-1.8) 11/06/17 06:00 Vitamin B12 391 pg/mL (232-1245) 11/03/17 14:15 Folic Acid 11.0 ng/mL (>3.0) 11/03/17 14:15 TSH 1.36 uIU/ml (0.34-5.60) 11/02/17 14:15 Influenza A (Rapid) NEG FOR INF A 11/02/17 14:15 Influenza B (Rapid) NEG FOR INF B 11/02/17 14:15 Blood Type B POSITIVE 11/11/17 12:22 Antibody Screen NEGATIVE 11/11/17 12:22 Crossmatch See Detail 11/11/17 12:22 - Physical Exam Vitals and I&O: Vital Signs Temp 98.7 F 11/12/17 11:53 Pulse 85 11/12/17 11:53 Resp 18 11/12/17 11:53 BP 119/59 11/12/17 11:53 Pulse Ox 89 11/12/17 11:53 Intake & Output 11/11/17 11/12/17 11/12/17 18:59 06:59 18:59 Intake Total 160.424 7042.167 100 Output Total 1200 Balance 698.063 0848.167 100 Weight (lbs) 89.312 kg Intake: Intake, IV Amount 800.233 7700.167 100 Pantoprazole 80 mg In 92.167 100 Sodium Chloride 0.9% 100 ml @ 10 mls/hr IV Q10H [facility] Rx#:[id number] Sodium Chloride 0.9% 1, 952.635 8551 000 ml @ 100 mls/hr IV . Q10H [facility] Rx#:[id number] Oral 460 Tube Feeding 670 Blood Product 250 Other 120 Output: Urine 1200 Other: # Voids 0 # Bowel Movements 1 Stool Characteristics Formed Black - Procedures Procedures: Procedures Procedure Code Date BLOOD TRANSFUSION SERVICE 95763 11/02/17 EGD DIAGNOSTIC BRUSH WASH 73701 11/02/17 INSPECTION OF UPPER INTESTINAL TRACT, ENDO [id number] 11/02/17 TRANSFUSE NONAUT RED BLOOD CELLS IN PERIPH VEIN, PERC 76253V3 11/02/17 Assessment/Plan - Assessment Assessment: Current Active Problems Problem Status Onset COFFEE GROUND EMESIS Acute severe anemia schizophrenia gerd htn hypercholesteremia - Plan Plan: gi f/u iv for hydration continue current orders Nutritional Asmnt/Malnutr-PDOC - Dietary Evaluation Malnutrition Findings (Please click <Entered> for more info): Nutritional Asmnt/Malnutrition Start: 11/06/17 17: 30 Text: Status: Complete Freq: Document 11/06/17 17:30 HENG (Rec: 11/06/17 17:50 LCHENG [id number]) Nutritional Asmnt/Malnutrition Patient General Information Nutritional Screening Moderate Risk Diagnosis upper GI bleed Pertinent Medical Hx/Surgical Hx schizophrenia, GERD, depression, esophageal CA, HTN , hypercholesterolemia Subjective Information Pt seen sleeping at time of visit, lunch tray at bedside. Spoke with RN, pt now on both clear liquid diet and bolus feeding. Pt tolerated clear liquid well. Per nurse note, pt had coffee ground spit and 1 black stool today. Current Diet Order/ Nutrition Support clear liquid, isosource 1.5 335ml bolus feeding QID Pertinent Medications colace, glucophage, nacl 0.9% Pertinent Labs 11/06 na 137, K 3.8, Cl 109, BUN 19, Cr 0.6, glucose 262, POC 224, Ca 7.8 Nutritional Hx/Data Height 1.68 m Height (Calculated Centimeters) 167.6 Current Weight (lbs) 72.575 kg Weight (Calculated Kilograms) 72.6 Weight (Calculated Grams) 18942.8 [place]ner Body Weight 142 % [place] Body Weight 113 Body Mass Index (BMI) 25.8 Weight Status Overweight GI Symptoms GI Symptoms None Last BM 2/6 Difficult in: None Skin Integrity/Comment: reddened to sacram Estimated Nutritional Goals Calories/Kcals/Kg 25-30 Kcals Calculated 2669-9199 Protein g/k-1.2 Protein Calculated 72-86 Fluid: ml 1800-2160ml (1ml/ckal) Nutritional Problem 1. Problem Problem altered nutrition related lab values Etiology endocrine dysfunction Signs/Symptoms: glucose 262, POC 224 Malnutrition Alert Protein-Calorie Malnutrition N/A Is there a minimum of two criteria No selected? Query Text:Check all the applicable criteria. A minimum of two criteria are recommended for diagnosis of either severe or non-severe malnutrition. Intervention/Recommendation Comments 1. Continue with current diet and bolus feeding as ordered. Bolus feeding provides 2010kcal, 90g protein and 1042ml free water. 2. Monitor PO intake, wt, GI function, labs and skin integrity 3. F/U as high risk in 2-3 days, 11/08-11/09 Expected Outcomes/Goals Expected Outcomes/Goals 1. Pt to meet at least 75% of nutritional needs. 2. Wt stability, skin to remain intact, GI function to improve, labs to approach WNL.
--- NOTE | 2017-11-22 04:00 | Discharge Summary ---
DATE OF DISCHARGE: 11/12/2017 HOSPITAL COURSE: The patient was admitted for coffee-ground emesis with upper GI bleeding. The patient did have the initial admitting diagnoses of coffee-ground emesis, rule out GI bleeding, history of GERD, history of esophageal cancer, history of depression, history of schizophrenia, history of hypertension, and hypercholesterolemia. The patient's hemoglobin dropped enough to have a couple of units of blood transfusion and GI was consulted and the family was not sure they wanted ____. They were refusing for endoscopy and eventually they agreed and endoscopy was done and no active bleeding was seen. His bleeding from the esophageal cancer at outlet had decreased and I spoke with the family, the sister, and they wanted the comfort measures. The patient had contacted the hospice and the patient was discharged back to [facility] where I will follow the patient and the patient will be placed in hospice. CONDITION AT THE TIME OF DISCHARGE: Stable. MEDICATIONS: See the reconciliation sheet. As noted in the reconciliation sheet. ACTIVITY: As tolerated. DIET: As noted. JOB# [id number]
== END 2017-11-12 14:30 | disposition hospice, home (50) | DRG 374 ==
LOC: ER 13:22 → TELE 19:50
PROVIDERS: ADMIT Internal Medicine; ATTEND Internal Medicine
PROC: 30233N1 Transfusion of Nonautologous Red Blood Cells into Peripheral Vein, Percutaneous Approach (ICD-10-PCS; principal; 2017-11-02)
PROC: 0DJ08ZZ Inspection of Upper Intestinal Tract, Via Natural or Artificial Opening Endoscopic (ICD-10-PCS; 2017-11-11)
DX: C15.9 Malignant neoplasm of esophagus, unspecified (principal); E41 Nutritional marasmus; K22.11 Ulcer of esophagus with bleeding; K29.71 Gastritis, unspecified, with bleeding; C16.0 Malignant neoplasm of cardia; R18.8 Other ascites; F20.9 Schizophrenia, unspecified; D64.9 Anemia, unspecified; E11.9 Type 2 diabetes mellitus without complications; K21.9 Gastro-esophageal reflux disease without esophagitis; I10 Essential (primary) hypertension; E78.5 Hyperlipidemia, unspecified; Z66 Do not resuscitate; F32.9 Major depressive disorder, single episode, unspecified; F17.210 Nicotine dependence, cigarettes, uncomplicated; F41.9 Anxiety disorder, unspecified; E78.00 Pure hypercholesterolemia, unspecified; Z79.84 Long term (current) use of oral hypoglycemic drugs; Z93.1 Gastrostomy status; Z79.82 Long term (current) use of aspirin; Z68.31 Body mass index [BMI] 31.0-31.9, adult
CPT/HCPCS: 36415-UA; 71045-TC; 80048-TC; 80053-TC; 82607-90; 82728-90; 82746-90; 82948-90; 83036-90; 83540-90; 83550-90; 83605; 83735-TC; 83880-TC; 84443-TC; 85007-TC; 85014-TC; 85018-TC; 85025-TC; 85027-TC; 85044-TC; 85610-TC; 86850-TC; 86900-TC; 86901-TC; 86922-TC; 87804-TC; 93005; 94640; 94760; C9113; J2001; J2250; J2270; J2405; J2543; J2704; J3010; J3370; J7030; J7613; P9016; Z7610